=== PATIENT | female | born 1975 | race Caucasian/White ===

== ENCOUNTER → 2017-04-13 | Outpatient (REF) | payer OTHER ==
[~2017-04-13] MED LIST: CODE30TA3 PO; IBUP-1022 PO; ONDA4TAB5 PO; OXYC1TAB23 PO
== END ==
LOC: M LAB REF 16:21
PROVIDERS: ATTEND Physician Assistant
DX: J01.10 Acute frontal sinusitis, unspecified (principal)

== ENCOUNTER → 2017-05-07 | Outpatient (CLI) | payer OTHER ==
--- NOTE | 2017-05-07 16:30 | REP ---
Left hand four views : There is no fracture or dislocation. Mineralization and joint spaces are normal. There are no calcifications or foreign bodies. Impression: Negative left hand . Signed by Hilario Tineo MD 05/07/2017 04:21 P
== END ==
LOC: M ADAMS 13:04
PROVIDERS: ATTEND Physician Assistant Medical
DX: S60.222A Contusion of left hand, initial encounter (principal); X58.XXXA Exposure to other specified factors, initial encounter; Y93.9 Activity, unspecified; Y92.9 Unspecified place or not applicable; Y99.8 Other external cause status

== ENCOUNTER → 2017-08-06 | Outpatient (REF) | payer OTHER ==
[2017-08-06 19:53] LABS: BASO % 0.2 % (0.0-1.0); EOS # 0.1 10^3/uL (0.0-0.50); EOS % 1.1 % (0.0-3.0); HEMATOCRIT 37.3 % (36.0-47.0); HEMOGLOBIN 11.9 g/dl (12.0-16.0); IMMATURE GRANULOCYTE % 0.2 % (0-0); LYMPH # 1.9 10^3/uL (1.5-4.5); LYMPH % 20.6 % (24.0-44.0); MEAN CORPUSCULAR HEMOGLOBIN 25.5 pg (27.0-33.0); MEAN CORPUSCULAR HGB CONC 31.9 g/dl (32.0-36.5); MONO # 0.5 10^3/uL (0.0-0.8); MONO % 5.5 % (0.0-5.0); NEUTROPHILS # 6.5 10^3/uL (1.8-7.7); NEUTROPHILS % 72.4 % (36.0-66.0); PLATELET COUNT, AUTOMATED 248 10^3/uL (150-450); RED BLOOD COUNT 4.66 10^6/uL (4.00-5.40); RED CELL DISTRIBUTION WIDTH 14.4 % (11.5-14.5)
[2017-08-06 20:21] LABS: HBsAg Prenatal NEGATIVE (NEGATIVE); RUBELLA IgG QUALITATIVE IMMUNE (IMMUNE)
[2017-08-06 20:49] LABS: HEPATITIS C VIRUS ABY INDEX 0.2 INDEX (<0.8)
[2017-08-06 20:50] LABS: HIV 1&2 SCREEN CENTAUR NEGATIVE (NEGATIVE)
[2017-08-06 22:30] LABS: CHLAMYDIA DNA AMPLIFICATION NEGATIVE (NEGATIVE); GC DNA AMPLIFICATION NEGATIVE (NEGATIVE)
== END ==
LOC: M LAB REF 09:02
DX: Z34.81 Encounter for supervision of other normal pregnancy, first trimester (principal)

== ENCOUNTER → 2017-08-23 | Outpatient (CLI) | payer OTHER | LOC: M SMT 09:22 | DX: Z13.79 Encounter for other screening for genetic and chromosomal anomalies (principal) ==

== ENCOUNTER → 2017-09-23 | Outpatient (REF) | payer OTHER | LOC: M LAB REF 09-24 13:24 | DX: R30.0 Dysuria (principal) ==

== ENCOUNTER → 2017-10-04 | Outpatient (CLI) | payer OTHER | LOC: M SMT 08:03 | DX: O09.522 Supervision of elderly multigravida, second trimester (principal); Z3A.19 19 weeks gestation of pregnancy | CPT/HCPCS: 76811 ==

== ENCOUNTER → 2017-10-05 | Outpatient (CLI) | payer OTHER ==
[2017-10-05 13:08] LABS: HEMATOCRIT 34.5 % (36.0-47.0); MEAN CORPUSCULAR HEMOGLOBIN 26.4 pg (27.0-33.0); MEAN CORPUSCULAR HGB CONC 31.9 g/dl (32.0-36.5); MEAN CORPUSCULAR VOLUME 82.9 fl (80.0-96.0); PLATELET COUNT, AUTOMATED 199 10^3/uL (150-450); RED BLOOD COUNT 4.16 10^6/uL (4.00-5.40); RED CELL DISTRIBUTION WIDTH 16.1 % (11.5-14.5); WHITE BLOOD COUNT 7.5 10^3/uL (4.0-10.0)
[2017-10-05 13:19] LABS: ALT/SGPT 20 U/L (12-78); AST/SGOT 13 U/L (7-37); BILIRUBIN,TOTAL 0.3 MG/DL (0.2-1.0); CREATININE FOR GFR 0.55 MG/DL (0.55-1.30); GLOMERULAR FILTRATION RATE > 60.0 (>58); LDH LACTATE DEHYDROGENASE 128 U/L (84-246); URIC ACID 3.2 MG/DL (2.6-6.0)
[2017-10-05 13:35] LABS: TOTAL PROTEIN,RANDOM URINE 21.3 MG/DL (0.0-12.0)
== END ==
LOC: M SMT 09:09
DX: O16.2 Unspecified maternal hypertension, second trimester (principal); Z3A.00 Weeks of gestation of pregnancy not specified
CPT/HCPCS: 84460

== ENCOUNTER → 2017-12-13 | Outpatient (CLI) | payer OTHER ==
[2017-12-13 17:10] LABS: BASO % 0.3 % (0.0-1.0); EOS # 0.1 10^3/uL (0.0-0.50); EOS % 0.6 % (0.0-3.0); HEMATOCRIT 31.1 % (36.0-47.0); HEMOGLOBIN 9.8 g/dl (12.0-15.5); IMMATURE GRANULOCYTE % 0.4 % (0-3.0); LYMPH # 1.1 10^3/uL (1.5-4.5); LYMPH % 14.8 % (24.0-44.0); MEAN CORPUSCULAR HEMOGLOBIN 26.5 pg (27.0-33.0); MEAN CORPUSCULAR HGB CONC 31.5 g/dl (32.0-36.5); MEAN CORPUSCULAR VOLUME 84.1 fl (80.0-96.0); MONO # 0.4 10^3/uL (0.0-0.8); MONO % 5.7 % (0.0-5.0); NEUTROPHILS % 78.2 % (36.0-66.0); PLATELET COUNT, AUTOMATED 201 10^3/uL (150-450); RED CELL DISTRIBUTION WIDTH 14.8 % (11.5-14.5); WHITE BLOOD COUNT 7.7 10^3/uL (4.0-10.0)
[2017-12-13 17:18] LABS: GLUCOSE CHALLENGE TEST 1 HOUR 112 MG/DL (LESS THAN 140)
[2017-12-13 17:39] LABS: RUBELLA IgG QUALITATIVE IMMUNE (IMMUNE)
[2017-12-13 17:40] LABS: HBsAg Prenatal NEGATIVE (NEGATIVE)
[2017-12-13 18:08] LABS: HEPATITIS C VIRUS ABY INDEX < 0.0 INDEX (<0.8)
[2017-12-13 18:08] LABS: HIV 1&2 SCREEN CENTAUR NEGATIVE (NEGATIVE)
== END ==
LOC: M WUC 11:37
DX: O10.012 Pre-existing essential hypertension complicating pregnancy, second trimester (principal)
CPT/HCPCS: 82950

== ENCOUNTER → 2018-01-19 | Outpatient (CLI) | payer OTHER | LOC: M RAD 06:35 | DX: O10.013 Pre-existing essential hypertension complicating pregnancy, third trimester (principal) | CPT/HCPCS: 76816 ==

== ENCOUNTER → 2018-02-01 | Outpatient (CLI) | payer OTHER | LOC: M RAD 09:34 | DX: O10.013 Pre-existing essential hypertension complicating pregnancy, third trimester (principal); O09.523 Supervision of elderly multigravida, third trimester | CPT/HCPCS: 76815 ==

== ENCOUNTER → 2018-02-01 | Outpatient (REF) | payer OTHER | LOC: M LAB REF 11:04 | DX: O09.523 Supervision of elderly multigravida, third trimester (principal); Z3A.00 Weeks of gestation of pregnancy not specified ==

== ENCOUNTER → 2018-02-07 | Outpatient (CLI) | payer OTHER | LOC: M RAD 07:31 | DX: O10.013 Pre-existing essential hypertension complicating pregnancy, third trimester (principal); Z3A.36 36 weeks gestation of pregnancy | CPT/HCPCS: 76816 ==

== ENCOUNTER → 2018-04-07 | Outpatient (REF) | payer OTHER | LOC: M LAB REF 17:20 | DX: L03.311 Cellulitis of abdominal wall (principal) ==

== ENCOUNTER → 2018-06-18 | Outpatient (CLI) | payer OTHER | LOC: M ADAMS 15:17 | DX: M25.512 Pain in left shoulder (principal) | CPT/HCPCS: 73030 ==

== ENCOUNTER → 2018-07-29 | Outpatient (CLI) | payer OTHER ==
[~2018-07-29] MED LIST changes: +COLA100C5 PO; +FOLI20CA PO; +FOLI800C PO; +IBUP80TA PO; +LABE20TAB PO; +MAPA500T2 PO; +MOTR200T44 PO; +PRENTAB29 PO; +PRENTAB9 PO
--- NOTE | 2018-07-29 14:35 | REP ---
Right thumb series: Four views. History: Injury. Findings: Four views of the right thumb show overall normal mineralization. Bones, joints and soft tissues are unremarkable. No fractures seen. Impression: Normal right thumb radiographs. Electronically Signed by Capo Liao MD 07/29/2018 02:26 P
== END ==
LOC: M LRY 14:09
PROVIDERS: ATTEND Physician Assistant Medical
DX: S69.91XA Unspecified injury of right wrist, hand and finger(s), initial encounter (principal); X58.XXXA Exposure to other specified factors, initial encounter; Y92.89 Other specified places as the place of occurrence of the external cause

== ENCOUNTER → 2018-12-17 | Outpatient (REF) | payer OTHER ==
[~2018-12-17] MED LIST changes: +ACET300T47 PO; -CODE30TA3 PO
== END ==
LOC: M LAB REF 11:49
DX: N39.0 Urinary tract infection, site not specified (principal)

== ENCOUNTER → 2019-01-05 | Outpatient (REF) | payer OTHER | LOC: M LAB REF 12:06 | PROVIDERS: ATTEND Physician Assistant | DX: R30.0 Dysuria (principal) ==

== ENCOUNTER → 2019-04-28 | Outpatient (CLI) | payer BC ==
--- NOTE | 2019-04-28 18:44 | REP ---
HISTORY: Pain after trauma. COMPARISON: None. FINDINGS: No acute fracture or destructive osseous lesion. The mortise is intact. Tiny plantar and retrocalcaneal heel spurs are present. Electronically Signed by Ander Greer DO 05/01/2019 04:13 P
--- NOTE | 2019-04-28 18:54 | REP ---
HISTORY: Pain. COMPARISON: 03/08/2015 FINDINGS: The joint spaces are symmetric and relatively well maintained. There is no evidence of acute fracture or destructive osseous lesion. IMPRESSION: Negative. There has been no significant change compared to the prior exam. Small plantar and retrocalcaneal heel spurs are present. Electronically Signed by Ander Greer DO 05/01/2019 04:13 P
== END ==
LOC: M WUC 15:44
PROVIDERS: ATTEND Nurse Practitioner Family
DX: M77.32 Calcaneal spur, left foot (principal)

== ENCOUNTER → 2020-08-31 | Outpatient (CLI) | payer SELFPAY ==
[~2020-08-31] MED LIST changes: +ONDA-83 PO; -ONDA4TAB5 PO
== END ==
LOC: M LABSMTC 10:05
PROVIDERS: ATTEND Pediatrics
DX: Z20.822 Contact with and (suspected) exposure to COVID-19 (principal)

== ENCOUNTER 2020-09-14 10:28 | Emergency (ER) | payer BC, SELFPAY ==
[~2020-09-14] VITALS: Ht 170.2 cm; Wt 119.6 kg
--- OUTSIDE RECORDS SUMMARY | 2020-09-14 10:34 | CCD ---
Author Organization Unknown Address [address] [place] [address] Phone [phone] Care Team Providers Care Slag Skimmer Name Role Phone Babatunde Aggarwal Unavailable Unavailable Allergies None recorded. Medications Name Status Start Date Stop Date diclofenac 1 % topical gel Active Not a vailable Fluzone Quad (PF) 60 mcg (15 mcg x 4)/0.5 mL IM syring e Active Not available meloxicam 15 mg tablet Active Not avail able methocarbamol 500 mg tablet Active Not available ondansetron 4 mg disintegrating tablet DIS 1 T ON THE TONGUE Q 8 H PRF NAUSEA Active Not available oseltamivir 75 mg capsule Active Not av ailable Problems None recorded. Procedures None recorded. Results Lab Results None recorded. Past Encounters 08/22/2020 SARS-CoV-2 Vaccination CARLINE Mooney: [address] [place] [address], Ph. 07/24/2020 SARS-CoV-2 Vaccination Babatunde Aggarwal MD: [address] [place] [address], Ph. Social History None recorded. Vaccine List Vaccine Type COVID-19, mRNA, LNP-S, PF, 100 mcg/0.5 m L dose .5 mL .5 mL Plan of Care Reminders Provider Appointments None recorded. Lab None recorded. Referral None recorded. Procedures None recorded. Surgeries None recorded. Imaging None recorded. Vitals None recorded.
--- OUTSIDE RECORDS SUMMARY | 2020-09-14 10:34 | CCD | Continuity of Care Document ---
Author Author Katherine GONSALES MD Organization Unknown Address [address] [place] [address], [facility] [address] [place] [address] Phone [phone] Care Team Providers Care Cement Or Concrete Finishing Supervisor Name Role Phone Marcos Hwang [employer] AUTM [phone] Problems Description No Information Available Social History Type Date Description Comments Sex Unknown ETOH Use Occasionally consumes alcohol Tobacco Use Start: Unknown Denies Smoking Allergies, Adverse Reactions, Alerts Description No Known Drug Allergies Medications Active Medications SIG Qnty Indications Ordering Provide r Date Meloxicam 15mg Tablets Take 1 Tablet By Mouth Daily With Food Or Milk 30tabs Ervin Castellanos am, MD 12/26/2019 Immunizations Description No Information Available Vital Signs Date Vital Result Comment 07/03/2020 8:30am Body Temperature 96.9 F 04/12/2020 9:09am Body Temperature 96.9 F Height 65.75 inches 5'5.75" Weight 259.38 lb BMI (Body Mass Index) 42.2 kg/m2 Results Description No Information Available Procedures Date Code Description Status 05/23/202010373 Inject/Drain Joint/Bursa Interme diate Completed Medical Devices Description No Information Available Encounters Type Date Location Provider Dx Diagnosis Office Visit 05/23/2020 2:30p Sherron Gonsales MD M6 5.812 Other synovitis and tenosynovitis, left shoulder M19.012 Primary osteoarthritis, left shoulder Office Visit 04/12/2020 9:00a Sherron Gonsales MD M6 5.812 Other synovitis and tenosynovitis, left shoulder Office Visit 03/04/2020 8:30a Sherron Gonsales MD M6 5.812 Other synovitis and tenosynovitis, left shoulder Office Visit 02/01/2020 8:45a [place] Ervin Gonsales MD M6 5.812 Other synovitis and tenosynovitis, left shoulder Assessments Date Code Description Provider 07/03/2020 M65.812 Other synovitis and tenosynoviti s, left shoulder Ervin Gonsales MD 07/03/2020 M19.012 Primary osteoarthritis, left tha ulder Ervin Gonsales MD 05/23/2020 M65.812 Other synovitis and tenosynoviti s, left shoulder Ervin Gonsales MD 05/23/2020 M19.012 Primary osteoarthritis, left tha ulFeng MD 04/12/2020 M65.812 Other synovitis and tenosynoviti s, left shoulder Ervin Gonsales MD 03/04/2020 M65.812 Other synovitis and tenosynoviti s, left shoulder Ervin Gonsales MD 02/01/2020 M65.812 Other synovitis and tenosynoviti s, left shoulder Ervin Gonsales MD Plan of Treatment 07/03/2020 - Ervni Gonsales MD* M65.812 Other synovitis and tenosynovitis, left shoulder* Follow up:* 3 months lt shoulder kanwal with dpv * M19.012 Primary osteoarthritis, left shoulder Functional Status Description No Information Available Mental Status Description No Information Available Referrals Refer to Dr Reason for Referral Status Appt Date Sunshine Gonsales MD MRI LT SHOULDER WRITTEN AUTH AND ON ECALL TO [facility]. Created [address] [place] [address] [phone] Sunshine Gonsales MD pt- lt shoulder written auth passed [facility] Created [address] [place] [address] [phone]
--- OUTSIDE RECORDS SUMMARY | 2020-09-14 10:34 | CCD ---
Author Organization Unknown Address [address] [place] [address] Phone [phone] Care Team Providers Care Manager Body Name Role Phone Babatunde Aggarwal Unavailable Unavailable [...] Results Lab Results None recorded. Past Encounters 07/24/2020 SARS-CoV-2 Vaccination Babatunde Aggarwal MD: [address] [place] [address], Ph. Social History None recorded. Vaccine List Vaccine Type COVID-19, mRNA, LNP-S, PF, 100 mcg/0.5 m L dose 07/24/20200.5 mL Plan of Care Reminders Provider Appointments None recorded. Lab None recorded. Referral None recorded. Procedures None recorded. Surgeries None recorded. Imaging None recorded. Vitals None recorded.
--- OUTSIDE RECORDS SUMMARY | 2020-09-14 10:34 | CCD ---
Author Author [facility] Organization [facility] Address Unknown Phone Unavailable Care Team Providers Care Electric Knife Operator Name Role Phone Geiger, Orchard Tiffany Unavailable Unavailable Geiger, Orchard Tiffany Unavailable Unavailable Geiger, Orchard Tiffany Unavailable Unavailable Geiger, Orchard Tiffany Unavailable Unavailable Geiger, Orchard Tiffany Unavailable Unavailable Geiger, Orchard Tiffany Unavailable Unavailable Geiger, Orchard Tiffany Unavailable Unavailable Geiger, Orchard Tiffany Unavailable Unavailable Geiger, Orchard Tiffany Unavailable Unavailable Geiger, Orchard Tiffany Unavailable Unavailable Sunshine Aggarwal MD Unavailable Unavailable Sunshine Aggarwal MD Unavailable Unavailable Sunshine Aggarwal MD Unavailable Unavailable Sunshine Aggarwal MD Unavailable Unavailable Sunshine Aggarwal MD Unavailable Unavailable Sunshine Aggarwal MD Unavailable Unavailable Sunshine Aggarwal MD Unavailable Unavailable Sunshine Aggarwal MD Unavailable Unavailable Sunshine Aggarwal MD Unavailable Unavailable Sunshine Aggarwal MD Unavailable Unavailable Sunshine Aggarwal MD Unavailable Unavailable Sunshine Aggarwal MD Unavailable Unavailable Sunshine Aggarwal MD Unavailable Unavailable Sunshine Aggarwal MD Unavailable Unavailable Sunshine Aggarwal MD Unavailable Unavailable Sunshine Aggarwal MD Unavailable Unavailable Sunshine Aggarwal MD Unavailable Unavailable Sunshine Aggarwal MD Unavailable Unavailable Sunshine Aggarwal MD Unavailable Unavailable Sunshine Aggarwal MD Unavailable Unavailable Sunshine Aggarwal MD Unavailable Unavailable Sunshine Aggarwal MD Unavailable Unavailable Sunshine Aggarwal MD Unavailable Unavailable Sunshine Aggarwal MD Unavailable Unavailable Sunshine Aggarwal MD Unavailable Unavailable Sunshine Aggarwal MD Unavailable Unavailable Sunshine Aggarwal MD Unavailable Unavailable Sunshine Aggarwal MD Unavailable Unavailable Sunshine Aggarwal MD Unavailable Unavailable Sunshine Aggarwal MD Unavailable Unavailable Sunshine Aggarwal MD Unavailable Unavailable Sunshine Aggarwal MD Unavailable Unavailable Sunshine Aggarwal MD Unavailable Unavailable Sunshine Aggarwal MD Unavailable Unavailable Sunshine Aggarwal MD Unavailable Unavailable Sunshine Aggarwal MD Unavailable Unavailable Sunshine Aggarwal MD Unavailable Unavailable Sunshine Aggarwal MD Unavailable Unavailable Sunshine Aggarwal MD Unavailable Unavailable Sunshine Aggarwal MD Unavailable Unavailable Sunshine Aggarwal MD Unavailable Unavailable Sunshine Aggarwal MD Unavailable Unavailable Sunshine Aggarwal MD Unavailable Unavailable Sunshine Aggarwal MD Unavailable Unavailable Sunshine Aggarwal MD Unavailable Unavailable Sunshine Aggarwal MD Unavailable Unavailable Sunshine Aggarwal MD Unavailable Unavailable Sunshine Aggarwal MD Unavailable Unavailable Sunshine Aggarwal MD Unavailable Unavailable Sunshine Aggarwal MD Unavailable Unavailable Sunshine Aggarwal MD Unavailable Unavailable Sunshine Aggarwal MD Unavailable Unavailable Sunshine Aggarwal MD Unavailable Unavailable Sunshine Aggarwal MD Unavailable Unavailable Sunshine Aggarwal MD Unavailable Unavailable Sunshine Aggarwal MD Unavailable Unavailable Sunshine Aggarwal MD Unavailable Unavailable Sunshine Aggarwal MD Unavailable Unavailable Sunshine Aggarwal MD Unavailable Unavailable Sunshine Aggarwal MD Unavailable Unavailable Sunshine Aggarwal MD Unavailable Unavailable Sunshine Aggarwal MD Unavailable Unavailable Sunshine Aggarwal MD Unavailable Unavailable Sunshine Aggarwal MD Unavailable Unavailable Sunshine Aggarwal MD Unavailable Unavailable Sunshine Aggarwal MD Unavailable Unavailable Sunshine Aggarwal MD Unavailable Unavailable Sunshine Aggarwal MD Unavailable Unavailable Sunshine Aggarwal MD Unavailable Unavailable Sunshine Aggarwal MD Unavailable Unavailable Sunshine Aggarwal MD Unavailable Unavailable Sunshine Aggarwal MD Unavailable Unavailable Sunshine Aggarwal MD Unavailable Unavailable Sunshine Aggarwal MD Unavailable Unavailable Sunshine Aggarwal MD Unavailable Unavailable Sunshine Aggarwal MD Unavailable Unavailable Sunshine Aggarwal MD Unavailable Unavailable Sunshine Aggarwal MD Unavailable Unavailable Sunshine Aggarwal MD Unavailable Unavailable Sunshine Aggarwal MD Unavailable Unavailable Sunshine Aggarwal MD Unavailable Unavailable Sunshine Aggarwal MD Unavailable Unavailable Sunshine Aggarwal MD Unavailable Unavailable Sunshine Aggarwal MD Unavailable Unavailable Sunshine Aggarwal MD Unavailable Unavailable Sunshine Aggarwal MD Unavailable Unavailable Sunshine Aggarwal MD Unavailable Unavailable Sunshine Aggarwal MD Unavailable Unavailable Sunshine Aggarwal MD Unavailable Unavailable Sunshine Gonsales MD Unavailable Unavailable Vaneenenaam, Sunshine Lewis MD Unavailable Unavailable Vaneenenaam, Sunshine Lewis MD Unavailable Unavailable Vaneenenaam, Sunshine Lewis MD Unavailable Unavailable Vaneenenaam, Sunshine Lewis MD Unavailable Unavailable Vaneenenaam, Sunshine Lewis MD Unavailable Unavailable Vaneenenaam, Sunshine Lewis MD Unavailable Unavailable Vaneenenaam, Sunshine Lewis MD Unavailable Unavailable Vaneenenaam, Sunshine Lewis MD Unavailable Unavailable Vaneenenaam, Sunshine Lewis MD Unavailable Unavailable Vaneenenaam, Sunshine Lewis MD Unavailable Unavailable Vaneenenaam, Sunshine Lewis MD Unavailable Unavailable Vaneenenaam, Sunshine Lewis MD Unavailable Unavailable Vaneenenaam, Sunshine Lewis MD Unavailable Unavailable Vaneenenaam, Sunshine Lewis MD Unavailable Unavailable Vaneenenaam, Sunshine Lewis MD Unavailable Unavailable Vaneenenaam, Sunshine Lewis MD Unavailable Unavailable Vaneenenaam, Sunshine Lewis MD Unavailable Unavailable Vaneenenaam, Sunshine Lewis MD Unavailable Unavailable Vaneenenaam, Sunshine Lewis MD Unavailable Unavailable Vaneenenaam, Sunshine Lewis MD Unavailable Unavailable Vaneenenaam, Sunshine Lewis MD Unavailable Unavailable Vaneenenaam, Sunshine Lewis MD Unavailable Unavailable Vaneenenaam, Sunshine Lewis MD Unavailable Unavailable Vaneenenaam, Sunshine Lewis MD Unavailable Unavailable Vaneenenaam, Sunshine Lewis MD Unavailable Unavailable Vaneenenaam, Sunshine Lewis MD Unavailable Unavailable Vaneenenaam, Sunshine Lewis MD Unavailable Unavailable Vaneenenaam, Sunshine Lewis MD Unavailable Unavailable Vaneenenaam, Sunshine Lewis MD Unavailable Unavailable Vaneenenaam, Sunshine Lewis MD Unavailable Unavailable Vaneenenaam, Sunshine Lewis MD Unavailable Unavailable Vaneenenaam, Sunshine Lewis MD Unavailable Unavailable Vaneenenaam, Sunshine Lewis MD Unavailable Unavailable Vaneenenaam, Sunshine Lewis MD Unavailable Unavailable Vaneenenaam, Sunshine Lewis MD Unavailable Unavailable Vaneenenaam, Sunshine Lewis MD Unavailable Unavailable Vaneenenaam, Sunshine Lewis MD Unavailable Unavailable Vaneenenaam, Sunshine Lewis MD Unavailable Unavailable Vaneenenaam, Sunshine Lewis MD Unavailable Unavailable Vaneenenaam, Sunshine Lewis MD Unavailable Unavailable Vaneenenaam, Sunshine Lewis MD Unavailable Unavailable LETTIERE, A DANIELA PA Unavailable Unavailable LETTIERE, A DANIELA PA Unavailable Unavailable LETTIERE, A DANIELA PA Unavailable Unavailable LETTIERE, A DANIELA PA Unavailable Unavailable LETTIERE, A DANIELA PA Unavailable Unavailable LETTIERE, A DANIELA PA Unavailable Unavailable LETTIERE, A DANIELA PA Unavailable Unavailable LETTIERE, A DANIELA PA Unavailable Unavailable LETTIERE, A DANIELA PA Unavailable Unavailable LETTIERE, A DANIELA PA Unavailable Unavailable LETTIERE, A DANIELA PA Unavailable Unavailable LETTIERE, A DANIELA PA Unavailable Unavailable LETTIERE, A DANIELA PA Unavailable Unavailable LETTIERE, A DANIELA PA Unavailable Unavailable LETTIERE, A DANIELA PA Unavailable Unavailable LETTIERE, A DANIELA PA Unavailable Unavailable LETTIERE, A DANIELA PA Unavailable Unavailable LETTIERE, A DANIELA PA Unavailable Unavailable LETTIERE, A DANIELA PA Unavailable Unavailable LETTIERE, A DANIELA PA Unavailable Unavailable LETTIERE, A DANIELA PA Unavailable Unavailable LETTIERE, A DNAIELA PA Unavailable Unavailable LETTIERE, A DANIELA PA Unavailable Unavailable LETTIERE, A DANIELA PA Unavailable Unavailable LETTIERE, A DANIELA PA Unavailable Unavailable LETTIERE, A DANIELA PA Unavailable Unavailable LETTIERE, A DANIELA PA Unavailable Unavailable LETTIERE, A DANIELA PA Unavailable Unavailable LETTIERE, A DANIELA PA Unavailable Unavailable Re-disclosure Warning The records that you are about to access may contain information from federally-assisted alcohol or drug abuse programs. If such information is present, then the following federally mandated warning applies: This information has been disclosed to you from records protected by federal confidentiality rules (42 CFR part 2). The federal rules prohibit you from making any further disclosure of this information unless further disclosure is expressly permitted by the written consent of the person to whom it pertains or as otherwise permitted by 42 CFR part 2. A general authorization for the release of medical or other information is NOT sufficient for this purpose. The Federal rules restrict any use of the information to criminally investigate or prosecute any alcohol or drug abuse patient.The records that you are about to access may contain highly sensitive health information, the redisclosure of which is protected by Article 27-F of the [facility] Public Health law. If you continue you may have access to information: Regarding HIV / AIDS; Provided by facilities licensed or operated by the [facility] Office of Mental Health; or Provided by the [facility] Office for People With Developmental Disabilities. If such information is present, then the following [facility] mandated warning applies: This information has been disclosed to you from confidential records which are protected by state law. State law prohibits you from making any further disclosure of this information without the specific written consent of the person to whom it pertains, or as otherwise permitted by law. Any unauthorized further disclosure in violation of state law may result in a fine or skilled nursing sentence or both. A general authorization for the release of medical or other information is NOT sufficient authorization for further disc losure. Allergies and Adverse Reactions Type Description Substance Reaction Status Data Source(s ) Allergy to substance Allergy to substance Allergy to substance [facility] ([facility]) Allergy to substance Allergy to substance Allergy to substance [facility] ([facility]) Allergy to substance Allergy to substance Allergy to substance [facility] ([facility]) Family History Family Member Name Family Member Gender Family Member Status Date o f Status Description Data Source(s) Unknown Male Problem [facility] ([facility]) Unknown Female Problem [facility] ([facility]) Unknown Female Problem [facility] ([facility]) Encounters Encounter Providers Location Date Indications Data Source(s ) MICHAEL [facility]oney[facility]-C: [address] [place] [address] [phone], Ph. Attender: Tiffany Geiger [facility] 08/22/2020 12:00:00 AM EST [facility] ([facility]) Babatunde Aggarwal MD: [address] [place] [address] [phone], Ph. Attender: Babatunde Aggarwal MD [facility] 07/24/2020 12:00:00 AM EST [facility] ([facility]) Babatunde Aggarwal MD: [address] [place] [address] [phone], Ph. Attender: Babatunde Aggarwal MD [facility] 07/24/2020 12:00:00 AM EST [facility] ([facility]) Babatunde Aggarwal MD: [address] [place] [address] [phone], Ph. Attender: Babatunde Aggarwal MD [facility] 07/24/2020 12:00:00 AM EST [facility] ([facility]) Outpatient Attender: Sunshine Gonsales MD Physical Therap y 07/03/2020 07:15:00 AM EST [facility] ([facility]) Outpatient Attender: Sunshine Gonsales MD Physical Therap y 05/23/2020 02:30:00 PM EDT [facility] ([facility]) Outpatient Attender: Sunshine Gonsales MD Physical Therap y 04/12/2020 09:00:00 AM EDT [facility] ([facility]) Outpatient Attender: Sunshine Gonsales MD Physical Therap y 03/04/2020 08:30:00 AM EDT [facility] ([facility]) Outpatient Attender: Sunshine Gonsales MD Physical Therap y 02/01/2020 08:45:00 AM EDT [facility] ([facility]) Outpatient Attender: Sunshine Gonsales MD Physical Therap y 12/07/2019 03:30:00 PM EDT [facility] ([facility]) Outpatient Attender: DANIELA Driver Prim fran 08/22/2019 04:10:00 PM EST [facility] ([facility]) Outpatient Attender: Sunshine Gonsales MD Physical Therap y 08/22/2019 07:15:00 AM EST [facility] ([facility]) Immunizations Vaccine Date Status Description Data Source(s) COVID-19, mRNA, LNP-S, PF, 100 mcg/0.5 mL dose 08/22/2020 09 :06:00 AM EST completed .5 mL [facility] ([facility]) COVID-19, mRNA, LNP-S, PF, 100 mcg/0.5 mL dose 07/24/2020 04 :16:18 PM EST completed .5 mL [facility] ([facility]) COVID-19, mRNA, LNP-S, PF, 100 mcg/0.5 mL dose 07/24/2020 04 :16:18 PM EST completed .5 mL [facility] ([facility]) COVID-19, mRNA, LNP-S, PF, 100 mcg/0.5 mL dose 07/24/2020 04 :16:18 PM EST completed .5 mL [facility] ([facility]) INFLUENZA VIRUS VACCINE QUADRIVAL (6 MOS AND UP)/PF 06/18/2020 12:00:00 AM EST completed [facility] Medications Medication Brand Name Start Date Product Form Dose Route Admi nistrative Instructions Pharmacy Instructions Status Indications Reaction Description Data Source(s) meloxicam 15 MG Oral Tablet Meloxicam 12/26/2019 12:00:00 AM EDT active [facility] ([facility]) Oseltamivir 75 MG Oral Capsule Oseltamivir Phosphate 08/22/2019 12:00:00 AM EST ORAL active [facility] ( [facility]) Ondansetron 4 MG Disintegrating Oral Tablet Ondansetron 08/22/2019 12:00:00 AM EST active [facility] ([facility]) Insurance Providers Payer name Policy type / Coverage type Policy ID Covered constitution party ID Covered constitution party's relationship to isabel Policy Isabel Plan Information SELF PAY ONLY [id number] SP [id number] [facility] [id number] SP [id number] ONE [employer] C[employer] MANAGEMENT O [id number] S [id number] [employer]CELLUS BCBS B [id number] S [id number] [place] Workers Compensation [id number] Self [id number] P[employer] Ins [place]) Workers Compensation [id number] Self [id number] MVP (pr) Commercial [id number] Self [id number] Pma Ins ([place]) Workers Compensation [id number] Self [id number] [facility] [id number] SP [id number] [facility] MANAGEMENT STACEY [id number] SP [id number] MVP HEALTH CARE [id number] SP [id number] MVP Commercial [id number] Self [id number] BCBS/Excellus Commercial [id number] Self [id number] MVP Commercial [id number] Self [id number] MVP Commercial [id number] Self [id number] [employer] [place]) Workers Compensation [id number] Self [id number] [employer]) Workers Compensation [id number] Self [id number] MVP (pr) Commercial [id number] Self [id number] [employer] ([place]) Workers Compensation [id number] Self [id number] [employer]) Workers Compensation [id number] Self [id number] [employer]) Workers Compensation [id number] Self [id number] MVP (pr) Commercial [id number] Self [id number] Pma Ins ([place]) Workers Compensation [id number] Self [id number] [facility] O [id number] O [id number] [employer] O [id number] S [id number] MVP HEALTH CARE O [id number] S [id number] ANSI-Not a Secondary Insurance [id number] ANSI-Not a Secondary Insurance [id number] ANSI-Commercial [id number] ANSI-Commercial [id number] ANSI-Not a Secondary Insurance [id number] MVP Commercial [id number] Self [id number] MVP (pr) Commercial [id number] Self [id number] [employer] Ins ([place]) Workers Compensation [id number] Self [id number] MVP Commercial [id number] Self [id number] Cigna/Conn Gen/MVP Medigap Part B [id number] Self [id number] MVP Health Maintenance Organization (HMO) [id number] Self [id number] [employer] HEALTH CARE [id number] SP [id number] [facility]() Workers Compensation [id number] Self [id number] [facility]() Workers Compensation [id number] Self [id number] MVP Commercial [id number] Self [id number] MVP Health Maintenance Organization (HMO) Se lf Cigna/Conn Gen/MVP Commercial Self MVP Commercial Self LUZMA TELLEZ PHY [id number] SP [id number] BCBS [place] PPO 302/307 [id number] SP [id number] CONSOLIDATED CLAIMS SERVICE [id number] SP [id number] [facility] [id number] SP [id number] Surgeries/Procedures Procedure Description Date Indications Data Source(s) ARTHROCENTESIS ASPIR&/INJECTION INTERM JT/BURSA 2019 12:00:00 AM EDT [facility] ([facility] ARTHROCENTESIS ASPIR&/INJECTION MAJOR JT/BURSA 12:00:00 AM EDT [facility] ([facility] ) ARTHROCENTESIS ASPIR&/INJECTION MAJOR JT/BURSA 12:00:00 AM EST [facility] ([facility]) Results ID Date Data Source [id number] 08/31/2020 12:00:00 AM EST [facility] Name Value Range Interpretation Code Description Data Janice rce(s) Supporting Document(s) SARS-CoV-2 (COVID-19) RNA [Presence] in Respiratory specimen by TY with probe detection Not Detected [facility] This lab was ordered by [facility] and reported by [employer] ID Date Data Source [id number] 08/15/2020 12:00:00 AM EST [facility] Name Value Range Interpretation Code Description Data Janice rce(s) Supporting Document(s) SARS-CoV2 Rapid Antigen Negative [facility] This lab was ordered by [facility] and reported by [facility]. ID Date Data Source [id number] 07/21/2020 12:00:00 AM EST [facility] Name Value Range Interpretation Code Description Data Janice rce(s) Supporting Document(s) SARS-CoV2 Rapid Antigen [facility] This lab was ordered by [facility] and reported by [facility]. ID Date Data Source [id number] 07/09/2020 12:00:00 AM EST [facility] Name Value Range Interpretation Code Description Data Janice rce(s) Supporting Document(s) SARS-CoV-2 (COVID-19) RNA [Presence] in Respiratory specimen by TY with probe detection [facility] This lab was ordered by [facility] and reported by [email or web address]. ID Date Data Source [id number] 05/16/2020 12:00:00 AM EDT [facility] Geo Gonsales MD Patient Name: [facility] Date of : [facility] Date of Exam: 05/16/2020SherronSHAHRIAR [id number]#: Fax: [phone] EXAM: MRI SHOULDER LEFT W/O CONTRASTCLINICAL INFORMATION: Chronic pain and decreased [id number].Comparison is 03/09/2019.3T multiplanar MRI imaging of the left shoulder was obtained using varioussequences.Once again, there is moderate hypertrophic degenerative change seeninvolving the acromioclavicular joint which has increased somewhat comparedto the prior exam. There is a small amount of T2 hypersignal seen withinthe AC joint which has developed since the last exam. The acromion processis again seen to be Type I. There is patchy T2 hypersignal seen throughoutthe supraspinatus tendon, status quo. Normal appearing low signal is againseen throughout the subscapularis, infraspinatus, and teres minor tendons,however, there is significant motion artifact seen on all axial imageswhich obscures this detail. The biceps tendon resides within the bicipitalgroove. There is no glenohumeral joint effusion. Note is again made of afocal area of T1 and T2 prolongation seen in the anterior humeral headwhich has increased slightly when compared to the prior exam. No frankcoracohumeral or coracoacromial ligamentous thickening has developed.There is no abnormal fluid in the subcoracoid recess.IMPRESSION:1. AC joint DJD as described above.2. Supraspinatus tendinitis/tendinosis, essentially unchanged.3. Humeral head cyst as described above.4. If labral pathology is of clinical concern, consider followup withshoulder MRI arthrography.Accredited by the [employer] in [place].SUHAS Vogt/Viktoria you for referring ROSS CRUZ to our office. Electronically Signed - WESLEY IZQUIERDO DO 05/17/20 12:01 Name Value Range Interpretation Code Description Data Janice rce(s) Supporting Document(s) Procedure Vital Signs ID Date Data Source UNK Name Value Range Interpretation Code Description Data Source(s) Body temperature 96.9 [degF] 96.9 [degF] [facility] Body mass index (BMI) [Ratio] 42.2 kg/m2 42.2 k g/m2 [facility] ([facility]) Body weight 259.38 [lb_av] 259.38 [lb_av] MEDEN T ([facility]) Body height 65.75 [in_i] 65.75 [in_i] [facility]) 5'5.75" Body temperature 96.9 [degF] 96.9 [degF] [facility] ([facility]) Body mass index (BMI) [Ratio] 32.9 kg/m2 32.9 k g/m2 [facility]) Body height 67 [in_i] 67 [in_i] [facility]) 5'7" Body weight 210.00 [lb_av] 210.00 [lb_av] MEDEN T ([facility]) Body temperature 99.7 [degF] 99.7 [degF] [facility] Oxygen saturation in Arterial blood by Pulse oximetry 99 % 99 % [facility] Respiratory rate 19 /min 19 /min [facility]) Heart rate 121 /min 121 /min [facility] ([facility]) Diastolic blood pressure 70 mm[Hg] 70 mm[Hg] [facility] Systolic blood pressure 118 mm[Hg] 118 mm[Hg] M [facility] ([facility])
--- OUTSIDE RECORDS SUMMARY | 2020-09-14 10:34 | CCD | Continuity of Care Document ---
Author Author Katherine GONSALES MD Organization Unknown Address [address] [place] [address], [facility] [address] [place] [address] Phone [phone] Care Team Providers Care Dye Colorist Formulator Name Role Phone Marcos Hwang RPA-Torres AUTM [phone] Problems Description No Information Available Social History [...] Information Available Procedures Date Code Description Status 05/23/202065179 Inject/Drain Joint/Bursa Interme diate Completed Medical Devices Description No Information Available Encounters Type Date Location Provider Dx Diagnosis Office Visit 07/03/2020 8:15a Sherron Gonsales MD M6 5.812 Other synovitis and tenosynovitis, left shoulder M19.012 Primary osteoarthritis, left shoulder Office Visit 05/23/2020 2:30p Sherron Gonsales MD M6 5.812 Other synovitis and tenosynovitis, left shoulder M19.012 Primary osteoarthritis, left shoulder Office Visit 04/12/2020 9:00a Sherron Gonsales MD M6 5.812 Other synovitis and tenosynovitis, left shoulder Office Visit 03/04/2020 8:30a [place] G[place] MD M6 5.812 Other synovitis and tenosynovitis, left shoulder Office Visit 02/01/2020 8:45a Sherron Gonsales MD M6 5.812 Other synovitis and tenosynovitis, left shoulder Assessments Date Code Description Provider 07/03/2020 M65.812 Other synovitis and tenosynoviti s, left shoulder Ervin Gonsales MD 07/03/2020 M19.012 Primary osteoarthritis, left tha ulder Sunshine. Joshua Gonsales MD 05/23/2020 M65.812 Other synovitis and tenosynoviti s, left shoulder Ervin Gonsales MD 05/23/2020 M19.012 Primary osteoarthritis, left tha ulder D. Joshua Gonsales MD 04/12/2020 M65.812 Other synovitis and tenosynoviti s, left shoulder Ervin Gonsales MD 03/04/2020 M65.812 Other synovitis and tenosynoviti s, left shoulder Ervin Gonsales MD 02/01/2020 M65.812 Other synovitis and tenosynoviti s, left shoulder DSam Gonsales MD Plan of Treatment 07/03/2020 - Ervin Gonsales MD* M65.812 Other synovitis and tenosynovitis, left shoulder* Follow up:* 3 months lt shoulder kanwal with dpv * M19.012 Primary osteoarthritis, left shoulder Functional Status Description No Information Available Mental Status Description No Information Available Referrals Refer to Reason for Referral Status Appt Date Sunshine Gosnales MD MRI LT SHOULDER WRITTEN AUTH AND ON ECALL TO [facility]. LS Created [address] [place] [phone] Sunshine Gonsales MD pt- lt shoulder written auth passed to chart going to . [facility] with patient. ls Created [address] [place] [phone]
--- OUTSIDE RECORDS SUMMARY | 2020-09-14 10:34 | CCD ---
Author Organization Unknown Address [address] [place] [address] Phone [phone] Care Team Providers Care Eyelet Maker Name Role Phone Babatunde Aggarwal Unavailable Unavailable [...] 07/24/2020 SARS-CoV-2 Vaccination Babatunde Aggarwal MD: [address] [place] [address], Ph. Social History None recorded. Vaccine List Vaccine Type COVID-19, mRNA, LNP-S, PF, 100 mcg/0.5 m L dose 07/24/20200.5 mL Plan of Care Reminders Provider Appointments None recorded. Lab None recorded. Referral None recorded. Procedures None recorded. Surgeries None recorded. Imaging None recorded. Vitals None recorded.
[2020-09-14] MEDS ORDERED: MELO15TA28 PO (10:36)
--- OUTSIDE RECORDS SUMMARY | 2020-09-14 11:16 | CCD ---
Author Author [facility] Organization [facility] Address Unknown Phone Unavailable Care Team Providers Care Discharging Machine Operator Name Role Phone Geiger, [place] Tiffany Unavailable Unavailable Geiger, [place] Tiffany Unavailable Unavailable Geiger, [place] Tiffany Unavailable Unavailable Geiger, [place] Tiffany Unavailable Unavailable Geiger, [place] Tiffany Unavailable Unavailable Geiger, [place] Tiffany Unavailable Unavailable Geiger, [place] Tiffany Unavailable Unavailable Geiger, [place] Tiffany Unavailable Unavailable Geiger, [place] Tiffany Unavailable Unavailable Geiger, [place] Tiffany Unavailable Unavailable Sunshine Aggarwal MD Unavailable [...] Unavailable Sunshine Aggarwal MD Unavailable Unavailable Sunshine Aggrawal MD Unavailable Unavailable Sunshine Aggarwal MD Unavailable [...] Unavailable Vaneenenaam, Sunshine Lewis MD Unavailable Unavailable Vaneencorneliaam, Sunshine Lewis MD Unavailable Unavailable Vaneenenaam, Sunshine [...] A DANIELA PA Unavailable Unavailable LETTIERE, A DANIEAL PA Unavailable Unavailable LETTIERE, A DANIELA PA [...] is protected by Article 27-F of the [facility] Public Health law. If you continue you may have access to information: Regarding HIV / AIDS; Provided by facilities licensed or operated by the [facility] Office of Mental Health; or Provided by the [facility] Office for People With Developmental Disabilities. If such information is present, then the following [facility] mandated warning applies: This information has been [...] law may result in a fine or intermediate sentence or both. A general authorization for the release of medical or other information is NOT sufficient authorization for further disc losure. Allergies and Adverse Reactions Type Description Substance Reaction Status Data Source(s ) Allergy to substance Allergy to substance Allergy to substance [facility] ([facility]) Allergy to substance Allergy to substance Allergy to substance [facility] ([facility]) Allergy to substance Allergy to substance Allergy to substance [facility] ([facility]) Family History Family Member Name Family Member Gender Family Member Status Date o f Status Description Data Source(s) Unknown Male Problem [facility] ([facility]) Unknown Female Problem [facility] ([facility]) Unknown Female Problem [facility] ([facility]) Encounters Encounter Providers Location Date Indications Data Source(s ) MICHAEL [facility]: [address] [place] [phone], Ph. Attender: Tiffany Geiger [facility] 08/22/2020 12:00:00 AM EST [facility] ([facility]) Babatunde Aggarwal MD: [address] [place] [phone], Ph. Attender: Babatunde Aggarwal MD [facility] 07/24/2020 12:00:00 AM EST [facility] ([facility]) Babatunde Aggarwal MD: [address] [place] [address], Ph. Attender: Babatunde Aggarwal MD [facility] 07/24/2020 12:00:00 AM EST DESIRAE ([facility]) Babatunde Aggarwal MD: [address] [place] [address], Ph. Attender: Bbaatunde Aggarwal MD [facility] 07/24/2020 12:00:00 AM EST DESIRAE ([facility]) Outpatient Attender: Sunshine Gonsales MD Physical Therap y 07/03/2020 07:15:00 AM EST [facility] ([facility]) Outpatient Attender: Sunshine Gonsales MD Physical Therap y 05/23/2020 02:30:00 PM EDT [facility] ([facility]) Outpatient Attender: Sunshine Gonsales MD Physical Therap y 04/12/2020 09:00:00 AM EDT [facility] ([facility]) Outpatient Attender: Sunshine Gonsales MD Physical Therap y 03/04/2020 08:30:00 AM EDT [facility] ([facility]) Outpatient Attender: Sunshine Gonsales MD Physical Therap y 02/01/2020 08:45:00 AM EDT [facility] ([facility]) Outpatient Attender: Sunshine Gonsales MD Physical Therap y 12/07/2019 03:30:00 PM EDT [facility] ([facility]) Outpatient Attender: DANIELA Driver Prim fran 08/22/2019 04:10:00 PM EST [facility] ([facility]) Outpatient Attender: Sunshine Gonsales MD Physical Therap y 08/22/2019 07:15:00 AM EST [facility] ([facility]) Immunizations Vaccine Date Status Description Data Source(s) COVID-19, mRNA, LNP-S, PF, 100 mcg/0.5 mL dose 08/22/2020 09 :06:00 AM EST completed .5 mL [facility] ([facility]) COVID-19, mRNA, LNP-S, PF, 100 mcg/0.5 mL dose 07/24/2020 04 :16:18 PM EST completed .5 mL [facility] ([facility]) COVID-19, mRNA, LNP-S, PF, 100 mcg/0.5 mL dose 07/24/2020 04 :16:18 PM EST completed .5 mL [facility] ([facility]) COVID-19, mRNA, LNP-S, PF, 100 mcg/0.5 mL dose 07/24/2020 04 :16:18 PM EST completed .5 mL [facility] ([facility]) INFLUENZA VIRUS VACCINE QUADRIVAL (6 MOS AND UP)/PF 06/18/2020 12:00:00 AM EST completed [facility] Medications Medication Brand Name Start Date Product Form Dose Route Admi nistrative Instructions Pharmacy Instructions Status Indications Reaction Description Data Source(s) meloxicam 15 MG Oral Tablet Meloxicam 12/26/2019 12:00:00 AM EDT active [facility] ([facility]) Oseltamivir 75 MG Oral Capsule Oseltamivir Phosphate 08/22/2019 12:00:00 AM EST ORAL active [facility] ( [facility], [facility]) Ondansetron 4 MG Disintegrating Oral Tablet Ondansetron 08/22/2019 12:00:00 AM EST active [facility] ([facility], [facility]) Insurance Providers Payer name Policy type / Coverage type Policy ID Covered democrat ID Covered democrat's relationship to isabel Policy Isabel Plan Information BCBS OF [facility] 306/806 [id number] SP [id number] SELF PAY ONLY [id number] SP [id number] MV HEALTH CARE [id number] SP [id number] BCBS OF [facility] 306/806 [id number] SP [id number] ONE CALL CARE MANAGEMENT O [id number] S [id number] EXCELLUS BCBS B [id number] S [id number] Pma Ins (WC) Workers Compensation [id number] Self [id number] Pma Ins (WC) Workers Compensation [id number] Self [id number] MVP (pr) Commercial [id number] Self [id number] Pma Ins (WC) Workers Compensation [id number] Self [id number] [facility] [id number] SP [id number] PMA MANAGEMENT STACEY [id number] SP [id number] MVP Commercial [id number] Self [id number] BCBS/Excellus Commercial [id number] Self [id number] MVP Commercial [id number] Self [id number] MVP Commercial [id number] Self [id number] Pma Ins (WC) Workers Compensation [id number] Self [id number] Pma Ins (WC) Workers Compensation [id number] Self [id number] MVP (pr) Commercial [id number] Self [id number] Pma Ins (WC) Workers Compensation [id number] Self [id number] Pma Ins () Workers Compensation [id number] Self [id number] Pma Ins () Workers Compensation [id number] Self [id number] MVP (pr) Commercial [id number] Self [id number] Pma Ins () Workers Compensation [id number] Self [id number] JRC O [id number] O [id number] PMA INSURANCE [employer] O [id number] S [id number] MVP HEALTH CARE O [id number] S [id number] ANSI-Not a Secondary Insurance [id number] ANSI-Not a Secondary Insurance [id number] ANSI-Commercial [id number] ANSI-Commercial [id number] ANSI-Not a Secondary Insurance [id number] MVP Commercial [id number] Self [id number] MVP (pr) Commercial [id number] Self [id number] Pma Ins () Workers Compensation [id number] Self [id number] MVP Commercial [id number] Self [id number] Cigna/Conn Gen/MVP Medigap Part B [id number] Self [id number] MVP Health Maintenance Organization (HMO) [id number] Self [id number] MVP HEALTH CARE [id number] SP [id number] [facility]() Workers Compensation [id number] Self [id number] [facility](WC) Workers Compensation [id number] Self [id number] MVP Commercial [id number] Self [id number] MVP Health Maintenance Organization (HMO) Se lf Cigna/Conn Gen/MVP Commercial Self MVP Commercial Self LUZMA TELLEZ PHY [id number] SP [id number] BCBS [place] PPO 302/307 [id number] SP [id number] CONSOLIDATED CLAIMS SERVICE [id number] SP [id number] [facility] [id number] SP [id number] Surgeries/Procedures Procedure Description Date Indications Data Source(s) ARTHROCENTESIS ASPIR&/INJECTION INTERM JT/BURSA 2019 12:00:00 AM EDT [facility] ([facility]) ARTHROCENTESIS ASPIR&/INJECTION MAJOR JT/BURSA 020 12:00:00 AM EDT [facility] ([facility] ARTHROCENTESIS ASPIR&/INJECTION MAJOR JT/BURSA 020 12:00:00 AM EST [facility] ([facility]) Results ID Date Data Source [id number] 08/31/2020 12:00:00 AM EST [facility] Name Value Range Interpretation Code Description Data Janice rce(s) Supporting Document(s) SARS-CoV-2 (COVID-19) RNA [Presence] in Respiratory specimen by TY with probe detection Not Detected [facility] This lab was ordered by [facility] and reported by [employer] ID Date Data Source [id number] 08/15/2020 12:00:00 AM EST [facility] Name Value Range Interpretation Code Description Data Janice rce(s) Supporting Document(s) SARS-CoV2 Rapid Antigen Negative [facility] This lab was ordered by [facility] and reported by [facility]. ID Date Data Source [id number] 07/21/2020 12:00:00 AM EST [facility] Name Value Range Interpretation Code Description Data Janice rce(s) Supporting Document(s) SARS-CoV2 Rapid Antigen [facility] This lab was ordered by [facility] and reported by [facility]. ID Date Data Source [id number] 07/09/2020 12:00:00 AM EST [facility] Name Value Range Interpretation Code Description Data Janice rce(s) Supporting Document(s) SARS-CoV-2 (COVID-19) RNA [Presence] in Respiratory specimen by TY with probe detection [facility] This lab was ordered by [facility] and reported by [employer] ID Date Data Source [id number] 05/16/2020 12:00:00 AM EDT [facility] Geo Gonsales MD Patient Name: [facility] Date of : [facility] Date of Exam: 05/16/2020SageSHAHRIAR best [id number]#: Fax: [phone] EXAM: MRI SHOULDER LEFT W/O CONTRASTCLINICAL INFORMATION: Chronic pain and decreased cppzx-ck-jjmmsn.Comparison is 03/09/2019.3T multiplanar MRI imaging of the [...] consider followup withshoulder MRI arthrography.Accredited by the [employer] in MR.SUHAS Vogt/Viktoria you for referring ROSS CRUZ to our office. Electronically Signed - WESLEY IZQUIERDO DO 05/17/20 12:01 Name Value Range Interpretation Code Description Data Janice rce(s) Supporting Document(s) Procedure Vital Signs ID Date Data Source UNK Name Value Range Interpretation Code Description Data Source(s) Body temperature 96.9 [degF] 96.9 [degF] [facility] ([facility]) Body mass index (BMI) [Ratio] 42.2 kg/m2 42.2 k g/m2 [facility]) Body weight 259.38 [lb_av] 259.38 [lb_av] MEDEN T ([facility]) Body height 65.75 [in_i] 65.75 [in_i] [facility]) 5'5.75" Body temperature 96.9 [degF] 96.9 [degF] [facility]) Body mass index (BMI) [Ratio] 32.9 kg/m2 32.9 k g/m2 [facility]) Body height 67 [in_i] 67 [in_i] [facility]) 5'7" Body weight 210.00 [lb_av] 210.00 [lb_av] MEDEN T ([facility]) Body temperature 99.7 [degF] 99.7 [degF] [facility] ([facility], [facility]) Oxygen saturation in Arterial blood by Pulse oximetry 99 % 99 % [facility] ([facility], [facility]) Respiratory rate 19 /min 19 /min [facility] ( [facility], [facility]) Heart rate 121 /min 121 /min [facility] ([facility], [facility]) Diastolic blood pressure 70 mm[Hg] 70 mm[Hg] [facility] ([facility], [facility]) Systolic blood pressure 118 mm[Hg] 118 mm[Hg] [facility] ([facility], [facility])
--- NOTE | 2020-09-14 11:29 | REP ---
INDICATION: bilater calf tenderness, ro Clot. COMPARISON: None TECHNIQUE: Multiple ultrasonographic images of the deep venous structures of the bilateral thighs were obtained from the level of the common femoral vein to the popliteal vein in the longitudinal and transverse scan planes along with compression ultrasound, doppler interrogation and color flow Doppler imaging. FINDINGS: There is no abnormal echogenic material seen within any of the visualized deep venous structures that would suggest acute thrombosis. Coaptation is unremarkable throughout. Doppler interrogation shows an expected response to respiratory variability and augmentation. The color flow Doppler images show what appears to be a normal vascular pattern throughout. IMPRESSION: There is no ultrasonographic evidence of deep venous thrombosis involving any of the visualized deep venous structures of the bilateral thighs as described above. Accredited by the [employer] in Vascular Peripheral Ultrasound. <Electronically signed by Rahat Gutierrez > 09/14/20 1120
[2020-09-14 11:46] LABS: BASO % 0.3 % (0.0-1.0); EOS # 0.2 10^3/uL (0.0-0.5); EOS % 2.5 % (0.0-3.0); HEMATOCRIT 38.3 % (36.0-47.0); HEMOGLOBIN 10.6 g/dl (12.0-15.5); LYMPH # 1.6 10^3/uL (1.5-5.0); LYMPH % 25.2 % (24.0-44.0); MEAN CORPUSCULAR HEMOGLOBIN 20.3 pg (27.0-33.0); MEAN CORPUSCULAR HGB CONC 27.7 g/dl (32.0-36.5); MEAN CORPUSCULAR VOLUME 73.4 fl (80.0-96.0); MONO # 0.3 10^3/uL (0.0-0.8); MONO % 5.3 % (2.0-8.0); NEUTROPHILS # 4.2 10^3/uL (1.5-8.5); NEUTROPHILS % 66.4 % (36.0-66.0); PLATELET COUNT, AUTOMATED 258 10^3/uL (150-450); RED BLOOD COUNT 5.22 10^6/uL (4.00-5.40); WHITE BLOOD COUNT 6.4 10^3/uL (4.0-10.0)
[2020-09-14 12:00] VITALS: BP 128/63
[2020-09-14 12:08] LABS: FREE T4 1.04 NG/DL (0.76-1.46); MAGNESIUM LEVEL 1.9 MG/DL (1.8-2.4); THYROID STIMULATING HORMONE 1.59 uIU/ML (0.358-3.740)
== END 2020-09-14 12:17 | disposition home or self-care (01) ==
LOC: M ED 10:28
DX: R20.2 Paresthesia of skin (principal); R06.02 Shortness of breath

== ENCOUNTER 2020-09-27 18:05 | Emergency (ER) | payer BC ==
[~2020-09-27] VITALS: Ht 170.2 cm; Wt 119.5 kg
[~2020-09-27 18:05] MED LIST changes: +MELO15TA28 PO
--- NOTE | 2020-09-27 19:08 | REP ---
INDICATION: sob COMPARISON: None. TECHNIQUE: Portable AP view of the chest FINDINGS: The mediastinum and cardiac silhouette are within normal limits for portable technique. The lung calles are clear without acute consolidation, effusion, or pneumothorax. Skeletal structures are intact. IMPRESSION: No acute cardiopulmonary process appreciated. <Electronically signed by Tom Grady > 09/27/20 [id number]
[2020-09-27 19:53] LABS: BASO % 0.6 % (0.0-1.0); EOS # 0.2 10^3/uL (0.0-0.5); EOS % 2.6 % (0.0-3.0); HEMATOCRIT 33.9 % (36.0-47.0); HEMOGLOBIN 10.2 g/dl (12.0-15.5); LYMPH # 1.7 10^3/uL (1.5-5.0); LYMPH % 24.8 % (24.0-44.0); MEAN CORPUSCULAR HEMOGLOBIN 21.7 pg (27.0-33.0); MEAN CORPUSCULAR HGB CONC 30.1 g/dl (32.0-36.5); MONO # 0.5 10^3/uL (0.0-0.8); MONO % 7.7 % (2.0-8.0); NEUTROPHILS # 4.5 10^3/uL (1.5-8.5); NEUTROPHILS % 63.9 % (36.0-66.0); PLATELET COUNT, AUTOMATED 311 10^3/uL (150-450); RED BLOOD COUNT 4.71 10^6/uL (4.00-5.40)
[2020-09-27 20:20] LABS: ALBUMIN 3.4 GM/DL (3.2-5.2); ALT/SGPT 20 U/L (12-78); BILIRUBIN,TOTAL < 0.1 MG/DL (0.2-1.0); BLOOD UREA NITROGEN 13 MG/DL (7-18); CALCIUM LEVEL 8.9 MG/DL (8.5-10.1); CARBON DIOXIDE LEVEL 25 MEQ/L (21-32); CHLORIDE LEVEL 110 MEQ/L (98-107); CK-MB VALUE MASS < 1.0 NG/ML (<3.6); CPK CREATINE PHOSPHOKINASE 43 U/L (26-192); CREATININE FOR GFR 0.73 MG/DL (0.55-1.30); GLOMERULAR FILTRATION RATE > 60.0 (>58); GLUCOSE, FASTING 100 MG/DL (70-100); MB/CK RELATIVE INDEX 2.33 (< OR =4); POTASSIUM SERUM 3.8 MEQ/L (3.5-5.1); SODIUM LEVEL 140 MEQ/L (136-145); TOTAL PROTEIN 7.1 GM/DL (6.4-8.2); TROPONIN I < 0.02 NG/ML (< 0.10)
[2020-09-27] MEDS ORDERED: LEVALBUTEROL HFA 45MCG/ACT 15 GM INHALER INH ONE (20:50)
[2020-09-27] MEDS ORDERED: NS 1,000 ML IV ONE (21:10)
[2020-09-27] MEDS ORDERED: ISOVUE-370 76% 100ML VIAL As Ordered ONE (21:11)
--- NOTE | 2020-09-27 21:34 | REPVR ---
PROCEDURE INFORMATION: Exam: CT Angiography Chest With Contrast Exam date and time: 09/27/2020 9:23 PM Age: 45 years old Clinical indication: Shortness of breath; Additional info: Sob/palpitations + d-dimer TECHNIQUE: Imaging protocol: Computed tomographic angiography of the chest with contrast. 3D rendering (Not supervised by radiologist): MIP and/or 3D reconstructed images were created by the technologist. Radiation optimization: All CT scans at this facility use at least one of these dose optimization techniques: automated exposure control; mA and/or kV adjustment per patient size (includes targeted exams where dose is matched to clinical indication); or iterative reconstruction. Contrast material: ISOVUE 370; Contrast volume: 75 ml; Contrast route: INTRAVENOUS (IV); COMPARISON: CR Chest, 1 view 09/27/2020 6:56 PM FINDINGS: Pulmonary arteries: There are no pulmonary emboli. Aorta: There is no aortic dissection or aneurysm. Lungs: Unremarkable. No consolidation. No masses. Pleural spaces: Unremarkable. No pneumothorax. No pleural effusion. Heart: Unremarkable. No cardiomegaly. No pericardial effusion. Mediastinal space: A small hiatal hernia is present. Lymph nodes: Unremarkable. No enlarged lymph nodes. Bones/joints: Unremarkable. No acute fracture. Soft tissues: Moderate splenomegaly. Otherwise unremarkable. IMPRESSION: 1. A small hiatal hernia is present. 2. There are no pulmonary emboli. 3. There is no aortic dissection or aneurysm. 4. No acute pulmonary parenchymal abnormalities. Electronically signed by: Willi Brasher On 09/27/2020 21:34:56 PM
[2020-09-27] MEDS ORDERED: VENTAER INH (23:03)
[2020-09-27] MEDS ORDERED: OMEP-218 PO (23:03)
[2020-09-27 23:16] VITALS: BP 122/64
--- NOTE | 2020-09-28 15:19 | ECGEPIP ---
[facility] - ED Test Date: 2020-09-27 Pat Name: ROSS CRUZ Department: Room: - Gender: Female Brush Finisher: chris : 1975 Requested By: Sherrell Ware Order Number: [id number] Reading MD: Fern Obrien Measurements Intervals Copen Rate: 88 P: 25 PA: 146 QRS: -3 QRSD: 90 T: 17 QT: 364 QTc: 440 Interpretive Statements Normal sinus rhythm NONSPECIFIC ST T WAVE CHANGES NO PRIOR ECG FOR COMPARISON Electronically Signed on 09-28-2020 15:19:10 EST by Fern Obrien
== END 2020-09-27 23:22 | disposition home or self-care (01) ==
LOC: M ED 18:05
DX: R06.00 Dyspnea, unspecified (principal); R00.2 Palpitations; K21.9 Gastro-esophageal reflux disease without esophagitis; J45.990 Exercise induced bronchospasm; Z79.899 Other long term (current) drug therapy
CPT/HCPCS: 71045; 71275; 80053; 82550; 82553; 84484; 85025; 85379; 93005; 94640; 96360; 99285; Q9967; U0003

== ENCOUNTER → 2020-10-09 | Outpatient (REF) | payer BC ==
[~2020-10-09] MED LIST changes: +OMEP-218 PO; +VENTAER INH
[2020-10-09 16:45] LABS: BASO % 0.4 % (0.0-1.0); EOS # 0.1 10^3/uL (0.0-0.5); EOS % 1.9 % (0.0-3.0); HEMATOCRIT 34.5 % (36.0-47.0); HEMOGLOBIN 9.8 g/dl (12.0-15.5); LYMPH # 1.5 10^3/uL (1.5-5.0); LYMPH % 20.4 % (24.0-44.0); MEAN CORPUSCULAR HEMOGLOBIN 20.9 pg (27.0-33.0); MEAN CORPUSCULAR HGB CONC 28.4 g/dl (32.0-36.5); MEAN CORPUSCULAR VOLUME 73.6 fl (80.0-96.0); MONO # 0.4 10^3/uL (0.0-0.8); MONO % 5.3 % (2.0-8.0); NEUTROPHILS # 5.3 10^3/uL (1.5-8.5); NEUTROPHILS % 71.7 % (36.0-66.0); PLATELET COUNT, AUTOMATED 292 10^3/uL (150-450); RED BLOOD COUNT 4.69 10^6/uL (4.00-5.40); WHITE BLOOD COUNT 7.4 10^3/uL (4.0-10.0)
[2020-10-09 17:12] LABS: FREE T4 0.96 NG/DL (0.76-1.46); PERCENT SATURATION 5.4 % (13.2-45.0); THYROID STIMULATING HORMONE 2.13 uIU/ML (0.358-3.740)
[2020-10-09 17:13] LABS: FOLATE 8.3 NG/ML
== END ==
LOC: M LAB REF 15:52
PROVIDERS: ATTEND Family Medicine Addiction Medicine
DX: G64 Other disorders of peripheral nervous system (principal); D50.9 Iron deficiency anemia, unspecified

== ENCOUNTER → 2020-10-14 | Outpatient (CLI) | payer BC ==
--- NOTE | 2020-10-14 08:58 | REP ---
INDICATION: SPLENOMEGALY. COMPARISON: None. TECHNIQUE: Complete abdominal ultrasound followed by Doppler ultrasound of the portal vein. FINDINGS: . Complete abdomen ultrasound: There is no cholelithiasis, gallbladder wall thickening or pericholecystic fluid. There is no intrahepatic or extrahepatic biliary duct dilatation. Common biliary duct measures 2.7 mm in diameter. The hepatic parenchyma is homogeneous and otherwise unremarkable. There are no hepatic masses or cysts. The pancreas is unremarkable. The spleen measures 14.5 x 4.9 x 15.2 for a splenic index of 1079. The spleen is enlarged. The kidneys are normal size. The right kidney measures 13.1 x 5.4 x 4.6 cm The left kidney measures 12.4 x 4.7 x 5.3 There are no renal calculi. There is no hydronephrosis. There are no renal solid or cystic masses. The visualized portions of the abdominal aorta demonstrate no aneurysm. There is no abdominal free fluid. Portal vein Doppler evaluation: The main portal vein measures 12.6 mm in diameter. This is normal. The peak flow velocity in the main portal vein is 47.1 centimeters/second. This is upper normal to mildly elevated. There is no decrease of main portal vein flow velocity. IMPRESSION: Splenomegaly. Otherwise, negative complete abdominal ultrasound The main portal vein is normal size. The main portal vein flow velocity is minimally elevated. There is no decrease of the main portal vein flow velocity. <Electronically signed by Hilario Tineo > 10/14/20 0849
== END ==
LOC: M RAD 07:09
PROVIDERS: ATTEND Internal Medicine Gastroenterology
DX: R16.1 Splenomegaly, not elsewhere classified (principal)

== ENCOUNTER → 2020-11-16 | Outpatient (CLI) | payer BC ==
[~2020-11-16] MED LIST changes: +FERR325T20
== END ==
LOC: M LABSMTC 08:50
PROVIDERS: ATTEND Anesthesiology
DX: Z01.812 Encounter for preprocedural laboratory examination (principal); Z20.822 Contact with and (suspected) exposure to COVID-19

== ENCOUNTER 2020-11-21 11:05 | Day surgery (SDC) | payer BC ==
[~2020-11-21] VITALS: Ht 170.2 cm; Wt 117.5 kg
[~2020-11-21 11:05] MED LIST changes: +NS 1,000 ML IV ONE
[2020-11-21] MEDS ORDERED: fentaNYL 100 MCG/2 ML INJECTION (J3010) As Ordered ONE (12:51)
[2020-11-21] MEDS ORDERED: LIDOCAINE 2% 100MG/5ML SDV (FOR ANES.) As Ordered ONE (12:51)
[2020-11-21] MEDS ORDERED: propofoL 200 MG/20 ML VIAL As Ordered ONE (12:51)
[2020-11-21] MEDS ORDERED: ONDANSETRON 4MG/2ML VIAL As Ordered ONE (13:56)
--- NOTE | 2020-11-21 13:59 | ROOR ---
Patient Name: Katherine Vides Procedure Date: 11/21/2020 1:46 PM Date of : 1975 Age: 45 Room: [facility] Gender: Female Note Status: Finalized Procedure: Upper GI endoscopy Indications: Iron deficiency anemia, Heartburn Providers: Geo BRENNAN MD Referring MD: Babatunde ARREOLA MD Requesting Provider: Medicines: Monitored Anesthesia Care Complications: No immediate complications. Procedure: Pre-Anesthesia Assessment: - The heart rate, respiratory rate, oxygen saturations, blood pressure, adequacy of pulmonary ventilation, and response to care were monitored throughout the procedure. The Endoscope was introduced through the mouth, and advanced to the second part of duodenum. The upper GI endoscopy was accomplished without difficulty. The patient tolerated the procedure well. Findings: Small Hiatal Hernia. The entire examined stomach was normal. The examined esophagus was normal. The examined duodenum was normal. Biopsies for histology were taken with a cold forceps for evaluation of celiac disease. Impression: - Small Hiatal Hernia. - Normal stomach. - Normal esophagus. - Normal examined duodenum. Biopsied. Recommendation: - Continue present medications. - Observe patient's clinical course. Procedure Code(s): --- Professional --- 16006, Esophagogastroduodenoscopy, flexible, transoral; with biopsy, single or multiple Diagnosis Code(s): --- Professional --- R12, Heartburn D50.9, Iron deficiency anemia, unspecified CPT copyright 2019 [employer]. All rights reserved. The codes documented in this report are preliminary and upon spanner operator review may be revised to meet current compliance requirements. Geo Brennan MD Geo BRENNAN MD 11/21/2020 1:59:25 PM Electronically signed by Geo BRENNAN MD Number of Addenda: 0 Note Initiated On: 11/21/2020 1:46 PM Estimated Blood Loss: Estimated blood loss: none.
--- NOTE | 2020-11-21 14:18 | ROOR ---
Patient Name: Katherine Vides Procedure Date: 11/21/2020 1:47 PM Date of : 1975 Age: 45 Room: [id number] Gender: Female Note Status: Finalized Procedure: Colonoscopy Indications: Iron deficiency anemia Providers: Geo BRENNAN MD Referring MD: Babatunde ARREOLA MD Requesting Provider: Medicines: Monitored Anesthesia Care Complications: No immediate complications. Procedure: Pre-Anesthesia Assessment: - The heart rate, respiratory rate, oxygen saturations, blood pressure, adequacy of pulmonary ventilation, and response to care were monitored throughout the procedure. The Colonoscope was introduced through the anus and advanced to the terminal ileum, with identification of the appendiceal orifice and IC valve. The colonoscopy was performed without difficulty. The patient tolerated the procedure well. The quality of the bowel preparation was good. Findings: The perianal and digital rectal examinations were normal. A diminutive polyp was found in the sigmoid colon. The polyp was sessile. The polyp was removed with a cold snare. Resection and retrieval were complete. The exam was otherwise without abnormality on direct and retroflexion views. Impression: - One diminutive polyp in the sigmoid colon, removed with a cold snare. Resected and retrieved. - The examination was otherwise normal on direct and retroflexion views. Recommendation: - Telephone endoscopist for pathology results in 2 weeks. - If the pathology report reveals adenomatous tissue, then repeat the colonoscopy for surveillance in 5 years. - For follow up on iron deficit and enlarged spleen, return to referring physician as previously scheduled. Procedure Code(s): --- Professional --- 79879, Colonoscopy, flexible; with removal of tumor(s), polyp(s), or other lesion(s) by snare technique Diagnosis Code(s): --- Professional --- D50.9, Iron deficiency anemia, unspecified K63.5, Polyp of colon CPT copyright 2019 [employer] [place] [employer]. All rights reserved. The codes documented in this report are preliminary and upon icd 9 coder review may be revised to meet current compliance requirements. Geo Brennan MD Geo BRENNAN MD 11/21/2020 2:18:33 PM Electronically signed by Geo BRENNAN MD Number of Addenda: 0 Note Initiated On: 11/21/2020 1:47 PM Estimated Blood Loss: Estimated blood loss: none.
[2020-11-21 14:42] VITALS: BP 118/79
== END 2020-11-21 14:47 | disposition home or self-care (01) ==
LOC: M OPP 11:05
PROVIDERS: ATTEND Internal Medicine Gastroenterology
DX: K63.5 Polyp of colon (principal); D50.9 Iron deficiency anemia, unspecified; K44.9 Diaphragmatic hernia without obstruction or gangrene; R12 Heartburn; Z79.899 Other long term (current) drug therapy
CPT/HCPCS: 43239; 45385; 88305; J2405; J3010

== ENCOUNTER → 2020-12-11 | Outpatient (REF) | payer BC ==
[~2020-12-11] MED LIST changes: +FERR325T19; -FERR325T20; -NS 1,000 ML IV ONE
[2020-12-11 16:49] LABS: BASO % 0.5 % (0.0-1.0); EOS # 0.1 10^3/uL (0.0-0.5); EOS % 1.8 % (0.0-3.0); HEMATOCRIT 39.9 % (36.0-47.0); HEMOGLOBIN 11.7 g/dl (12.0-15.5); LYMPH # 1.4 10^3/uL (1.5-5.0); LYMPH % 21.1 % (24.0-44.0); MEAN CORPUSCULAR HEMOGLOBIN 22.5 pg (27.0-33.0); MEAN CORPUSCULAR HGB CONC 29.3 g/dl (32.0-36.5); MEAN CORPUSCULAR VOLUME 76.6 fl (80.0-96.0); MONO # 0.4 10^3/uL (0.0-0.8); MONO % 5.9 % (2.0-8.0); NEUTROPHILS # 4.6 10^3/uL (1.5-8.5); NEUTROPHILS % 70.4 % (36.0-66.0); PLATELET COUNT, AUTOMATED 281 10^3/uL (150-450); RED BLOOD COUNT 5.21 10^6/uL (4.00-5.40); WHITE BLOOD COUNT 6.6 10^3/uL (4.0-10.0)
[2020-12-11 17:05] LABS: ALBUMIN 3.6 GM/DL (3.2-5.2); ALT/SGPT 18 U/L (12-78); BILIRUBIN,TOTAL 0.3 MG/DL (0.2-1.0); BLOOD UREA NITROGEN 10 MG/DL (7-18); CALCIUM LEVEL 9.5 MG/DL (8.5-10.1); CARBON DIOXIDE LEVEL 27 MEQ/L (21-32); CHLORIDE LEVEL 106 MEQ/L (98-107); CHOLESTEROL LEVEL 145 MG/DL (<200); CHOLESTEROL RISK RATIO 2.735 (<5); CREATININE FOR GFR 0.77 MG/DL (0.55-1.30); GLOMERULAR FILTRATION RATE > 60.0 (>58); GLUCOSE, FASTING 84 MG/DL (70-100); HDL CHOLESTEROL 53 MG/DL (>40); IRON (FE) 33 UG/DL (50-170); LDL CHOLESTEROL 83 MG/DL (<100); NON-HDL-C 92 MG/DL; POTASSIUM SERUM 4.8 MEQ/L (3.5-5.1); SODIUM LEVEL 139 MEQ/L (136-145); TOTAL PROTEIN 7.4 GM/DL (6.4-8.2); TRIGLYCERIDES LEVEL 44 MG/DL (<150)
[2020-12-11 17:06] LABS: FOLATE 6.6 NG/ML; VITAMIN B12 LEVEL 373 PG/ML
== END ==
LOC: M LAB REF 15:54
PROVIDERS: ATTEND Family Medicine Addiction Medicine
DX: D50.9 Iron deficiency anemia, unspecified (principal); Z68.42 Body mass index [BMI] 45.0-49.9, adult; G64 Other disorders of peripheral nervous system; E66.9 Obesity, unspecified

== ENCOUNTER → 2021-05-03 | Outpatient (REF) | payer BC ==
[2021-05-03 15:51] LABS: RSV AMPLIFICATION POSITIVE (NEGATIVE)
== END ==
LOC: M LAB REF 14:55
PROVIDERS: ATTEND Physician Assistant
DX: Z20.89 Contact with and (suspected) exposure to other communicable diseases (principal); R06.2 Wheezing

== ENCOUNTER → 2021-11-11 | Outpatient (CLI) | payer OTHER ==
[~2021-11-11] MED LIST changes: +OMEP-173 PO; -OMEP-218 PO
== END ==
LOC: M WHC 12:42
PROVIDERS: ATTEND Obstetrics & Gynecology
DX: R92.8 Other abnormal and inconclusive findings on diagnostic imaging of breast (principal); N63.20 Unspecified lump in the left breast, unspecified quadrant
CPT/HCPCS: 76642; 77065; G0279

== ENCOUNTER → 2022-01-28 | Outpatient (REF) | payer OTHER | LOC: M PLALAB 12:06 | PROVIDERS: ATTEND Obstetrics & Gynecology | DX: N93.9 Abnormal uterine and vaginal bleeding, unspecified (principal) ==

== ENCOUNTER → 2022-01-28 | Outpatient (REF) | payer OTHER | LOC: M LAB REF 14:19 | PROVIDERS: ATTEND Obstetrics & Gynecology | DX: N93.9 Abnormal uterine and vaginal bleeding, unspecified (principal); Z53.9 Procedure and treatment not carried out, unspecified reason ==

== ENCOUNTER → 2022-05-28 | Outpatient (REF) | payer OTHER | LOC: M SFHCWAGY 10:03 | PROVIDERS: ATTEND Obstetrics & Gynecology | DX: N76.2 Acute vulvitis (principal) ==

== ENCOUNTER → 2022-10-20 | Outpatient (REF) | payer BC | LOC: M LAB REF 19:45 | PROVIDERS: ATTEND Physician Assistant | DX: R30.0 Dysuria (principal) ==

== ENCOUNTER → 2022-11-10 | Outpatient (CLI) | payer BC ==
[2022-11-10 10:29] LABS: BASO % 0.4 % (0.0-1.0); EOS # 0.1 10^3/uL (0.0-0.5); EOS % 1.4 % (0.0-3.0); HEMATOCRIT 38.9 % (36.0-47.0); HEMOGLOBIN 11.6 g/dl (12.0-15.5); LYMPH # 1.6 10^3/uL (1.5-5.0); LYMPH % 19.9 % (24.0-44.0); MEAN CORPUSCULAR HEMOGLOBIN 23.7 pg (27.0-33.0); MEAN CORPUSCULAR HGB CONC 29.8 g/dl (32.0-36.5); MEAN CORPUSCULAR VOLUME 79.6 fl (80.0-96.0); MONO # 0.5 10^3/uL (0.0-0.8); MONO % 6.5 % (2.0-8.0); NEUTROPHILS # 5.6 10^3/uL (1.5-8.5); NEUTROPHILS % 71.4 % (36.0-66.0); PLATELET COUNT, AUTOMATED 279 10^3/uL (150-450); RED BLOOD COUNT 4.89 10^6/uL (4.00-5.40); WHITE BLOOD COUNT 7.8 10^3/uL (4.0-10.0)
[2022-11-10 10:53] LABS: TOTAL IRON BINDING CAPACITY 343 UG/DL (250-425)
[2022-11-10 10:54] LABS: ALBUMIN 3.5 G/DL (3.2-5.2); ALKALINE PHOSPHATASE 76 U/L (46-116); ALT/SGPT < 9 U/L (7.0-40); AST/SGOT 11 U/L (<34); BILIRUBIN,TOTAL 0.3 MG/DL (0.3-1.2); BLOOD UREA NITROGEN 14 MG/DL (9-23); CALCIUM LEVEL 8.9 MG/DL (8.5-10.1); CARBON DIOXIDE LEVEL 27 MMOL/L (20-31); CHLORIDE LEVEL 106 MMOL/L (98-107); CHOLESTEROL LEVEL 135 MG/DL (<200); CHOLESTEROL RISK RATIO 2.92 (<5); CREATININE FOR GFR 0.69 MG/DL (0.55-1.30); FERRITIN 9.3 NG/ML (7.3-270.7); GLOMERULAR FILTRATION RATE > 60.0 (>58); GLUCOSE, FASTING 85 MG/DL (60-100); HDL CHOLESTEROL 46.2 MG/DL (>40); IRON (FE) 35 UG/DL (50-170); LDL CHOLESTEROL 80.8 MG/DL (<100); NON-HDL-C 88.8 MG/DL; PERCENT SATURATION 10.2 % (13.2-45.0); SODIUM LEVEL 138 MMOL/L (136-145); TRIGLYCERIDES LEVEL 40 MG/DL (<150)
== END ==
LOC: M WUC 08:30
PROVIDERS: ATTEND Physician Assistant
DX: D50.9 Iron deficiency anemia, unspecified (principal); E66.9 Obesity, unspecified

== ENCOUNTER 2022-12-17 16:50 | Inpatient (IN) | payer BC ==
[~2022-12-17] VITALS: Ht 170.2 cm; Wt 118.3 kg
[~2022-12-17 16:50] MED LIST changes: -ACET1TAB55 PO; -FAMO20TA PO
[2022-12-17] MEDS ORDERED: FAMO20TA PO (17:45)
[2022-12-17] MEDS ORDERED: MOM 30ML SUSPENSION UDC PO PRN (18:10)
[2022-12-17 18:20] VITALS: BP 126/73
[2022-12-17 18:48] LABS: HEMATOCRIT 36.4 % (36.0-47.0); HEMOGLOBIN 11.3 g/dl (12.0-15.5); MEAN CORPUSCULAR VOLUME 77.4 fl (80.0-96.0); PLATELET COUNT, AUTOMATED 264 10^3/uL (150-450); WHITE BLOOD COUNT 7.7 10^3/uL (4.0-10.0)
[2022-12-17 20:00] VITALS: BP 145/81
[2022-12-17] MEDS: AMPICILLIN SOD/SULBACTAM SOD 3 GM in D5W MINI-BAG PLUS 100 ML IV SCH (20:25)
[2022-12-18] VITALS: BP 100/53
[2022-12-18] MEDS: AMPICILLIN SOD/SULBACTAM SOD 3 GM in D5W MINI-BAG PLUS 100 ML IV SCH ×4 (00:38→18:54)
[2022-12-18 04:00] VITALS: BP 112/55
[2022-12-18 08:34] VITALS: BP 98/67
[2022-12-18] MEDS: ACETAMINOPHEN TAB 650MG DOSE (2X325MG) PO PRN ×2 (11:16→19:11)
[2022-12-18 12:00] VITALS: BP 108/65
[2022-12-18] MEDS ORDERED: HOME MED LIST COMPLETE! XX SCH (14:45)
[2022-12-18 16:00] VITALS: BP 108/60
[2022-12-18 20:00] VITALS: BP 121/71
[2022-12-18] MEDS ORDERED: IBUPROFEN 600MG TAB PO PRN (21:00)
[2022-12-19] VITALS (9 sets, daily range): BP systolic 101–132; BP diastolic 61–75
[2022-12-19] MEDS: AMPICILLIN SOD/SULBACTAM SOD 3 GM in D5W MINI-BAG PLUS 100 ML IV SCH ×4 (01:06→19:00)
[2022-12-19] MEDS ORDERED: fentaNYL 100 MCG/2 ML INJECTION IV PRN (17:15)
[2022-12-19] MEDS ORDERED: HYDROMORPHONE HCL 0.5 MG/ 0.5 ML SYRINGE IV PRN (17:15)
[2022-12-19] MEDS ORDERED: ONDANSETRON 4MG 2ML VIAL IV PRN (17:15)
[2022-12-19] MEDS ORDERED: oxyCODONE 5MG TAB PO PRN (17:15)
[2022-12-19] MEDS ORDERED: MEPERIDINE 25 MG/ML 1ML VIAL IV PRN (17:15)
[2022-12-19] MEDS ORDERED: SCOPOLAMINE 1MG TRANSDERMAL PATCH As Ordered ONE (18:27)
[2022-12-19] MEDS ORDERED: BUPIVACAINE HCL 0.5% 30ML VIAL As Ordered ONE (18:27)
[2022-12-19] MEDS ORDERED: UNASYN 3GM VIAL As Ordered ONE (18:33)
[2022-12-19] MEDS ORDERED: propofoL 200 MG/20 ML VIAL As Ordered ONE (18:50)
[2022-12-19] MEDS ORDERED: fentaNYL 100 MCG/2 ML INJECTION As Ordered ONE (18:50)
[2022-12-19] MEDS ORDERED: KETOROLAC 60MG 2ML VIAL As Ordered ONE (18:50)
[2022-12-19] MEDS ORDERED: METOCLOPRAMIDE INJ 10MG/2ML VIAL As Ordered ONE (18:50)
[2022-12-19] MEDS ORDERED: ONDANSETRON 4MG 2ML VIAL As Ordered ONE (18:50)
[2022-12-19] MEDS ORDERED: MIDAZOLAM INJ 2MG/2ML VIAL As Ordered ONE (18:50)
[2022-12-19] MEDS ORDERED: ACETAMINOPHEN 1000MG 100ML IV BAG As Ordered ONE (18:50)
[2022-12-19] MEDS ORDERED: LIDOCAINE 2% 100MG/5ML SDV (FOR ANES.) As Ordered ONE (18:50)
[2022-12-20] VITALS: BP 116/63
[2022-12-20 01:00] VITALS: BP 98/51
[2022-12-20] MEDS: AMPICILLIN SOD/SULBACTAM SOD 3 GM in D5W MINI-BAG PLUS 100 ML IV SCH ×2 (01:10→06:32)
[2022-12-20 05:00] VITALS: BP 108/59
[2022-12-20 08:00] VITALS: BP 116/62
[2022-12-20] MEDS ORDERED: IBUP-1022 PO (09:04)
[2022-12-20] MEDS ORDERED: ACET1TAB55 PO (09:04)
[2022-12-20 10:00] VITALS: BP 118/73
== END 2022-12-20 10:11 | disposition home or self-care (01) | DRG 364 ==
LOC: OBSVTOIN 17:12 → M PED 17:12
PROVIDERS: ADMIT Obstetrics & Gynecology; ATTEND Obstetrics & Gynecology
PROC: 0W9N0ZZ Drainage of Female Perineum, Open Approach (ICD-10-PCS; principal; 2022-12-19 15:00)
DX: L02.215 Cutaneous abscess of perineum (principal); K21.9 Gastro-esophageal reflux disease without esophagitis; L73.2 Hidradenitis suppurativa; N76.2 Acute vulvitis; Z83.3 Family history of diabetes mellitus; Z20.822 Contact with and (suspected) exposure to COVID-19

== ENCOUNTER → 2022-12-17 | Outpatient (REF) | payer BC ==
[~2022-12-17] MED LIST changes: +ACET1TAB55 PO; +FAMO20TA PO
== END ==
LOC: M PLALAB 16:36
PROVIDERS: ATTEND Obstetrics & Gynecology
DX: N76.2 Acute vulvitis (principal)

== ENCOUNTER → 2023-10-26 | Outpatient (CLI) | payer BC ==
[~2023-10-26] MED LIST changes: +ACET1TAB55 PO; +FAMO20TA PO
== END ==
LOC: M WUC 09:21
PROVIDERS: ATTEND Physician Assistant
DX: S93.601A Unspecified sprain of right foot, initial encounter (principal); X58.XXXA Exposure to other specified factors, initial encounter; Y92.9 Unspecified place or not applicable; Y93.9 Activity, unspecified; Y99.9 Unspecified external cause status

== ENCOUNTER → 2023-11-08 | Outpatient (CLI) | payer BC ==
[2023-11-08 08:45] LABS: BASO % 0.4 % (0.0-1.0); EOS # 0.1 10^3/uL (0.0-0.5); EOS % 1.6 % (0.0-3.0); HEMATOCRIT 37.4 % (36.0-47.0); LYMPH # 1.2 10^3/uL (1.5-5.0); LYMPH % 15.7 % (24.0-44.0); MEAN CORPUSCULAR HEMOGLOBIN 22.4 pg (27.0-33.0); MEAN CORPUSCULAR HGB CONC 29.4 g/dl (32.0-36.5); MONO # 0.5 10^3/uL (0.0-0.8); MONO % 6.8 % (2.0-8.0); NEUTROPHILS # 5.7 10^3/uL (1.5-8.5); PLATELET COUNT, AUTOMATED 274 10^3/uL (150-450); RED BLOOD COUNT 4.92 10^6/uL (4.00-5.40); WHITE BLOOD COUNT 7.7 10^3/uL (4.0-10.0)
[2023-11-08 09:15] LABS: ALBUMIN 3.1 G/DL (3.2-5.2); ALKALINE PHOSPHATASE 77 U/L (46-116); ALT/SGPT 10 U/L (7.0-40); AST/SGOT < 8 U/L (<34); BILIRUBIN,TOTAL 0.2 MG/DL (0.3-1.2); BLOOD UREA NITROGEN 12 MG/DL (9-23); CALCIUM LEVEL 8.9 MG/DL (8.5-10.1); CARBON DIOXIDE LEVEL 24 MMOL/L (20-31); CHLORIDE LEVEL 109 MMOL/L (98-107); CHOLESTEROL LEVEL 152 MG/DL (<200); CHOLESTEROL RISK RATIO 3.34 (<5); CREATININE FOR GFR 0.64 MG/DL (0.55-1.30); FREE T4 0.93 NG/DL (0.89-1.76); GLOMERULAR FILTRATION RATE > 60.0 (>58); GLUCOSE, FASTING 98 MG/DL (60-100); HDL CHOLESTEROL 45.5 MG/DL (>40); IRON (FE) 15 UG/DL (50-170); LDL CHOLESTEROL 94.9 MG/DL (<100); NON-HDL-C 106.5 MG/DL; PERCENT SATURATION 4.2 % (13.2-45.0); POTASSIUM SERUM 4.1 MMOL/L (3.5-5.1); SODIUM LEVEL 140 MMOL/L (136-145); THYROID STIMULATING HORMONE 3.066 uIU/ML (0.55-4.78); TOTAL IRON BINDING CAPACITY 353 UG/DL (250-425); TOTAL PROTEIN 7.2 G/DL (5.7-8.2); TRIGLYCERIDES LEVEL 58 MG/DL (<150)
[2023-11-08 09:16] LABS: FERRITIN 24.3 NG/ML (7.3-270.7)
== END ==
LOC: M LAB 07:54 → M CARPUL 07:54
PROVIDERS: ATTEND Physician Assistant
DX: R53.83 Other fatigue (principal); Z86.16 Personal history of COVID-19; R06.09 Other forms of dyspnea; Z13.220 Encounter for screening for lipoid disorders; E66.9 Obesity, unspecified; Z13.1 Encounter for screening for diabetes mellitus; D50.9 Iron deficiency anemia, unspecified

== ENCOUNTER → 2024-01-17 | Outpatient (REF) | payer BC ==
[2024-01-17 17:33] LABS: BASO % 0.4 % (0.0-1.0); EOS # 0.2 10^3/uL (0.0-0.5); HEMATOCRIT 33.3 % (36.0-47.0); HEMOGLOBIN 9.8 g/dl (12.0-15.5); LYMPH # 1.3 10^3/uL (1.5-5.0); LYMPH % 16.4 % (24.0-44.0); MEAN CORPUSCULAR HEMOGLOBIN 21.9 pg (27.0-33.0); MEAN CORPUSCULAR HGB CONC 29.4 g/dl (32.0-36.5); MEAN CORPUSCULAR VOLUME 74.5 fl (80.0-96.0); MONO # 0.6 10^3/uL (0.0-0.8); MONO % 6.7 % (2.0-8.0); NEUTROPHILS # 6.1 10^3/uL (1.5-8.5); NEUTROPHILS % 74.3 % (36.0-66.0); PLATELET COUNT, AUTOMATED 373 10^3/uL (150-450); RED BLOOD COUNT 4.47 10^6/uL (4.00-5.40); WHITE BLOOD COUNT 8.2 10^3/uL (4.0-10.0)
[2024-01-17 17:58] LABS: IRON (FE) 20 UG/DL (50-170)
[2024-01-17 17:59] LABS: PERCENT SATURATION 5.1 % (13.2-45.0); TOTAL IRON BINDING CAPACITY 392 UG/DL (250-425)
[2024-01-17 18:01] LABS: FERRITIN 5.7 NG/ML (7.3-270.7)
[2024-01-17 18:26] LABS: HIV 1&2 SCREEN NEGATIVE (NEGATIVE)
== END ==
LOC: M LAB REF 16:38
PROVIDERS: ATTEND Physician Assistant
DX: D50.9 Iron deficiency anemia, unspecified (principal); Z11.4 Encounter for screening for human immunodeficiency virus [HIV]

== ENCOUNTER → 2024-01-24 | Outpatient (CLI) | payer BC | LOC: M RAD 12:14 | PROVIDERS: ATTEND Physician Assistant | DX: L73.2 Hidradenitis suppurativa (principal) ==

== ENCOUNTER → 2024-02-23 | Outpatient (CLI) | payer BC | LOC: M WUC 10:30 | PROVIDERS: ATTEND Physician Assistant | DX: L73.2 Hidradenitis suppurativa (principal) ==

== ENCOUNTER → 2024-03-30 | Outpatient (REF) | payer BC ==
[2024-04-01 16:58] LABS: HEPATITIS B SURFACE ANTIGEN NEGATIVE (NEGATIVE)
[2024-04-01 17:18] LABS: HEPATITIS B CORE ANTIBODY IGM NEGATIVE (NEGATIVE)
[2024-04-01 17:19] LABS: HEPATITIS C VIRUS ABY INDEX 0.02 INDEX (<0.8)
[2024-04-02 15:03] LABS: QuantiFERON-TB Gold Plus NEGATIVE (NEGATIVE)
== END ==
LOC: M LABDRWAD 13:39
PROVIDERS: ATTEND Physician Assistant
DX: Z79.899 Other long term (current) drug therapy (principal)

== ENCOUNTER → 2024-04-05 | Outpatient (CLI) | payer BC | LOC: M WHC 08:18 | PROVIDERS: ATTEND Obstetrics & Gynecology | DX: N93.9 Abnormal uterine and vaginal bleeding, unspecified (principal); N83.202 Unspecified ovarian cyst, left side ==

== ENCOUNTER → 2025-02-23 | Outpatient (REF) | payer BC | LOC: M SFHCWAGY 10:40 | PROVIDERS: ATTEND Obstetrics & Gynecology | DX: N93.9 Abnormal uterine and vaginal bleeding, unspecified (principal) ==

== ENCOUNTER 2025-03-14 06:11 | Observation (INO) | payer BC ==
[~2025-03-14] VITALS: Ht 170.2 cm; Wt 123.4 kg
[2025-03-14] VITALS (8 sets, daily range): BP systolic 94–123; BP diastolic 46–71; TEMP 96.8–97.5; O2SAT 95–99
[~2025-03-14 06:11] MED LIST changes: -IBUP-1022 PO; +IBUP600T42 PO; +MINO100T6 PO; +SECU300P SQ; +TIZA10TA PO; +TRAN650T PO; +VITA1CAP25 PO; +ZINC220CA PO
[2025-03-14] MEDS ORDERED: LR 1,000 ML IV SCH (06:15)
[2025-03-14 06:43] LABS: PLATELET COUNT, AUTOMATED 261 10^3/uL (150-450)
[2025-03-14] MEDS ORDERED: KETOROLAC 30 MG/ML 1 ML VIAL As Ordered ONE (06:50)
[2025-03-14] MEDS ORDERED: dexAMETHasone 4 MG/ML 1 ML VIAL As Ordered ONE (06:50)
[2025-03-14] MEDS ORDERED: ONDANSETRON 4MG 2ML VIAL As Ordered ONE (06:50)
[2025-03-14] MEDS ORDERED: ROCURONIUM BROMIDE 50MG/5ML VIAL As Ordered ONE (06:51)
[2025-03-14] MEDS ORDERED: SUGAMMADEX SODIUM 500 MG/5 ML VIAL As Ordered ONE (06:51)
[2025-03-14] MEDS ORDERED: LIDOCAINE 2% 100 MG/5 ML SDV (FOR ANES.) As Ordered ONE (06:51)
[2025-03-14] MEDS ORDERED: dexmedeTOMIDine (4 MCG/ML) 200 MCG/50 ML BTL As Ordered ONE (06:51)
[2025-03-14] MEDS ORDERED: MIDAZOLAM INJ 2 MG/2 ML VIAL As Ordered ONE (06:57)
[2025-03-14] MEDS: SCOPOLAMINE 1MG TRANSDERMAL PATCH TOP ONE (07:32)
[2025-03-14] MEDS: ceFAZolin SOD 3 GM in DEXTROSE 5% (D5W) MINI-BAG PLU 1... IV ONE (07:50)
[2025-03-14] MEDS ORDERED: ACETAMINOPHEN 1000MG/100ML IV BAG As Ordered ONE (07:55)
[2025-03-14] MEDS: METHYLENE BLUE 0.5% (5 MG/ML) 10 ML AMP As Ordered ONE (08:17)
[2025-03-14] MEDS ORDERED: HYDROmorphone HCL 2 MG/ML 1 ML VIAL As Ordered ONE (09:27)
[2025-03-14] MEDS ORDERED: MUPIROCIN 2% OINT 22 GM TUBE As Ordered ONE (09:31)
[2025-03-14] MEDS ORDERED: ACETAMINOPHEN 325 MG TAB As Ordered ONE (09:31)
[2025-03-14] MEDS ORDERED: PERCOCET 5MG/325MG TAB PO PRN (11:15)
[2025-03-14] MEDS ORDERED: ONDANSETRON 4MG 2ML VIAL IV PRN ×2 (11:15→11:25)
[2025-03-14] MEDS ORDERED: MORPHINE 4 MG/ML 1 ML VIAL IV PRN (11:15)
[2025-03-14] MEDS ORDERED: HYDROMORPHONE HCL 0.5 MG/0.5 ML SYRINGE IV PRN (11:25)
[2025-03-14] MEDS: LR 1,000 ML IV SCH ×2 (13:52→14:02)
[2025-03-14] MEDS: DOCUSATE SODIUM 100 MG CAPSULE PO SCH (13:55)
[2025-03-14] MEDS: KETOROLAC 30 MG/ML 1 ML VIAL IV SCH (17:11)
[2025-03-15 00:17] VITALS: BP 105/56; TEMP 97.3; O2SAT 96
[2025-03-15] MEDS: PERCOCET 5MG/325MG TAB PO PRN (01:51)
[2025-03-15 04:09] VITALS: BP 100/57; TEMP 97.2; O2SAT 96
[2025-03-15 07:37] VITALS: BP 115/59; TEMP 97.3; O2SAT 98
[2025-03-15 09:51] VITALS: O2SAT 96
[2025-03-15] MEDS ORDERED: IBUPROFEN 800 MG TAB PO SCH (13:00)
== END 2025-03-15 11:36 | disposition home or self-care (01) ==
LOC: M SDC 06:11 → M RR INP 11:14 → M MSPAV 13:05
PROVIDERS: ADMIT Obstetrics & Gynecology; ATTEND Obstetrics & Gynecology
DX: D25.9 Leiomyoma of uterus, unspecified (principal); N80.03 Adenomyosis of the uterus; N83.202 Unspecified ovarian cyst, left side; N73.6 Female pelvic peritoneal adhesions (postinfective); R10.2 Pelvic and perineal pain; Z68.41 Body mass index [BMI] 40.0-44.9, adult; J45.909 Unspecified asthma, uncomplicated; Z79.899 Other long term (current) drug therapy
CPT/HCPCS: 36415; 58571; 58662; 81025; 85027; 86850; 86900; 86901; 88305; 88307; 96374; 96376; J0131; J0665; J0688; J1100; J1171; J1885; J2250; J2405; J2765; J3010; Q9968; S2900

== ENCOUNTER → 2025-03-21 | Outpatient (REF) | payer BC ==
[2025-03-21 15:29] LABS: APPEARANCE, URINE CLEAR (CLEAR); BACTERIA, URINE AUTO NEGATIVE (NEGATIVE); BILIRUBIN, URINE AUTO NEGATIVE (NEGATIVE); BLOOD, URINE BLOOD NEGATIVE (NEGATIVE); GLUCOSE, URINE (UA) AUTO NEGATIVE (NEGATIVE); KETONE, URINE AUTO NEGATIVE (NEGATIVE); LEUKOCYTE ESTERASE, URINE AUTO TRACE (NEGATIVE); MUCUS, URINE SMALL (NEGATIVE); NITRITE, URINE AUTO NEGATIVE (NEGATIVE); PROTEIN, URINE AUTO NEGATIVE (NEGATIVE); RBC, URINE AUTO 0 /HPF (0-3); SPECIFIC GRAVITY URINE AUTO 1.016 (1.002-1.035); SQUAMOUS EPITHELIAL CELL UR AU 5 /HPF (0-6); UROBILINOGEN, URINE AUTO 0.2 mg/dL (0.0-2.0); WBC, URINE AUTO 0 /HPF (0-3)
== END ==
LOC: M SFHCWAGY 14:51
PROVIDERS: ATTEND Obstetrics & Gynecology
DX: R30.0 Dysuria (principal)

== ENCOUNTER → 2025-04-26 | Outpatient (CLI) | payer BC ==
[2025-04-26 12:47] LABS: BASO # 0.0 10^3/uL (0.0-0.2); BASO % 0.5 % (0.0-1.0); EOS # 0.2 10^3/uL (0.0-0.5); EOS % 2.2 % (0.0-3.0); LYMPH # 1.7 10^3/uL (1.5-5.0); LYMPH % 19.9 % (24.0-44.0); MONO # 0.6 10^3/uL (0.0-0.8); MONO % 7.3 % (2.0-8.0); NEUTROPHILS # 5.8 10^3/uL (1.5-8.5); NEUTROPHILS % 69.6 % (36.0-66.0); PLATELET COUNT, AUTOMATED 338 10^3/uL (150-450)
[2025-04-26 13:15] LABS: ALT/SGPT 17 U/L (7.0-40); AST/SGOT 16 U/L (<34); CALCIUM LEVEL 9.3 MG/DL (8.5-10.1); CARBON DIOXIDE LEVEL 28 MMOL/L (20-31); CHLORIDE LEVEL 105 MMOL/L (98-107); CHOLESTEROL LEVEL 138 MG/DL (<200); CHOLESTEROL RISK RATIO 3.50 (<5); CREATININE FOR GFR 0.78 MG/DL (0.55-1.30); GLOMERULAR FILTRATION RATE > 90.0 (>51); IRON (FE) 33 UG/DL (50-170); LDL CHOLESTEROL 85.6 MG/DL (<100); NON-HDL-C 98.6 MG/DL; POTASSIUM SERUM 4.3 MMOL/L (3.5-5.1); SODIUM LEVEL 140 MMOL/L (136-145); TRIGLYCERIDES LEVEL 65 MG/DL (<150)
[2025-04-26 13:16] LABS: PERCENT SATURATION 9.8 % (13.2-45.0)
== END ==
LOC: M WUC 08:49
PROVIDERS: ATTEND Student in an Organized Health Care Education/Training Program
DX: Z00.00 Encounter for general adult medical examination without abnormal findings (principal); D50.9 Iron deficiency anemia, unspecified

== ENCOUNTER → 2025-05-25 | Outpatient (CLI) | payer BC | LOC: M WUC 08:17 | PROVIDERS: ATTEND Physician Assistant | DX: L73.2 Hidradenitis suppurativa (principal) ==

== ENCOUNTER → 2025-05-25 | Outpatient (CLI) | payer BC ==
[2025-05-25 13:22] LABS: TOTAL 25(OH) VITAMIN D 32.9 NG/ML (20.0-100.0)
[2025-05-25 13:35] LABS: ESTIMATED AVERAGE GLUCOSE 111.0 MG/DL (60-110)
== END ==
LOC: M WUC 08:15
PROVIDERS: ATTEND Nurse Practitioner Family
DX: E55.9 Vitamin D deficiency, unspecified (principal); E66.9 Obesity, unspecified; Z13.1 Encounter for screening for diabetes mellitus; Z13.220 Encounter for screening for lipoid disorders; L73.2 Hidradenitis suppurativa